=== PATIENT | male | born 1975 | race African-American/Black ===

== ENCOUNTER 2023-01-24 16:04 | Outpatient (AMB) | payer OTHER, SELFPAY ==
--- NOTE | 2023-01-24 16:04 | MHC.PC.OV ---
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 Accompanied by: Self / Same As Patient Allergies No Known Allergies Allergy (Verified 01/24/23 16:31) Medication List - Last Reconciled 01/24/23 by Luan Elliott MD No Known Home Meds Dental Screening Dental Screen Date: 01/24/23 Did you have a dental visit in the last 12 months?: Yes Did you have a dental problem in the last 6 months where you did not have access to dental care?: No Was dental information given to patient?: Patient has dentist HPI New patient-Requesting physical HPI Details Patient comes in today for his annual physical examination and to establish care - is a new patient to the practice States that he currently feels okay States that he has a Hx of ELIZABETH - was diagnosed (sleep study) back in 2015 when he was still working in [place] Recalls that he was using a CPAP device for a while when he sleeps at night but he stopped using it about 3 years ago after learning that that the model he was using may potentially cause cancer States that he has not been using a CPAP device since as he moved around a lot over the past few years (due to his work) but is now planning to settle down here in [facility] - 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 [place] He denies any headaches or dizziness Denies any chest pains, no SOB No nausea/vomiting, no abdominal pain No change in bowel habits noted He denies any acute urinary symptoms [facility] Medical History Obstructive sleep apnea Surgical History Hx of left knee surgery (~2005) Family History Other Congestive heart failure Diabetes Hypertension Social History (Updated 01/24/23 @ 16:37 by Luan Elliott MD) Housing: House Patient Tobacco Use Status: Current someday Tobacco user e-Cigarette/Vaping Use: Never Used Substance Use Type: Marijuana service: No Current occupational status: employed Cognitive needs: No Hearing needs: No Vision needs: No Questionnaire PHQ-9 Over the last 2 weeks, how often have you been bothered by any of the following problems? 1. Little interest or pleasure in doing things: nearly every day 2. Feeling down, depressed, or hopeless: not at all 3. Trouble falling or staying asleep, or sleeping too much: not at all 4. Feeling tired or having little energy: several days 5. Poor appetite or overeating: not at all 6. Feeling bad about yourself - or that you are a failure or have let yourself or your family down: not at all 7. Trouble concentrating on things, such as reading the newspaper or watching television: not at all 8. Moving or speaking so slowly that other people could have noticed. Or the opposite - being so fidgety or restless that you have been moving around a lot more than usual: not at all 9. Thoughts that you would be better off or of hurting yourself in some way: not at all Total score: 4 Depression Screening Interpretation: Positive Depression Screening Follow-up: Existing condition, Follow-up Visit Requested and Declines treatment 19084 - PHQ-9 Billing: Yes Source: Developed by Drs. Alcides Tracey, Nusrat Galdamez, José Miguel Lopez and colleagues, with an educational willie from [employer]. Thrive Questionnaire Date Thrive assessed: 01/24/23 I am a: Patient What is your living situation today?: I have a steady place to live Within the past 12 months, did the food you bought not last and you didn't have the money to get more?: Never true Within the past 12 months, did you worry whether your food would run out before you got money to buy more?: Never true Do you have trouble paying for medicines?: No Do you have trouble getting transportation to medical appointments?: No Do you have trouble paying your heating and electricity bill?: No Do you have trouble taking care of your child, family member or friend?: No Do you have trouble with day-to-day activities such as bathing, preparing meals, shopping, managing finances, etc.?: No Are you currently unemployed and looking for a job?: No Are you interested in more education?: No Please select the resources that you would like help with: None Currently or been in a relationship where the following occur: no concerns reported AUDIT C Alcohol Use Questionnaire (AUDIT-C) 1. How often do you have a drink containing alcohol?: Monthly or less 3. How often do you have six or more drinks on one occasion?: Never Total Score: 1 Score Reviewed/Action Taken: Yes YESENIA-7 AMB Questionnaire YESENIA-7 Date YESENIA - 7 assessed: 01/24/23 Feeling nervous, anxious, or on edge: 1 = Several days Not being able to stop or control worryin = Not at all Worrying too much about different things: 0 = Not at all Trouble relaxin = Not at all Being so restless that it is hard to sit still: 0 = Not at all Becoming easily annoyed or irritable: 0 = Not at all Feeling afraid as if something awful might happen: 0 = Not at all Total YESENIA-7 score (0-4 normal; 5-9 mild; 10-14 moderate; 15-21 severe): 1 Source: Developed by Drs. Alcides Tracey, Nusrat Galdamez, José Miguel Lopez and colleagues, with an educational willie from [employer]. Review of Systems Const Denies chills, Reports daytime sleepiness (sometimes), Denies fatigue, Denies fever(s), Denies headache(s), Denies malaise and Denies weakness Eyes Denies blurry vision, Denies change in vision, Denies irritation and Denies itchy eyes ENT Denies dysphagia, Denies dizziness, Denies otalgia, Denies headache(s), Denies nasal congestion, Denies neck pain, Denies odynophagia and Denies sore throat Card Denies chest pain, Denies rapid heart rate, Denies irregular heart rhythm, Denies palpitations and Denies dyspnea Resp Denies chest congestion, Denies cough, Denies dyspnea and Denies wheezing GI Denies abdominal pain, Denies bloating, Denies constipation, Denies dysphagia, Denies heartburn, Denies diarrhea, Denies nausea, Denies odynophagia and Denies vomiting Denies hematuria, Denies difficulty urinating, Denies dysuria, Denies urinary frequency and Denies urinary urgency Musc Denies back pain, Denies arthralgias, Denies joint swelling, Denies muscle weakness and Denies neck pain Skin/Breast Denies change in pigmentation, Denies lesions, Denies rash and Denies unusual bruising Neuro Denies dizziness, Denies headache(s), Denies paresthesias and Denies weakness Endo Denies fatigue and Denies palpitations Aller/Immun Denies itchy eyes and Denies wheezing Physical exam (Primary Care) Vital Signs: Last Vital Signs Pulse 76 01/24/23 16:05 BP 118/78 01/24/23 16:05 Pulse Ox 97 01/24/23 16:05 Oxygen Delivery Method Room Air 01/24/23 16:05 BMI result Body Mass Index 31.3 Tobacco/Smoking Status: Tobacco use Status Patient Tobacco Use Status Current someday Tobacco 01/24/23 16:37 e-Cigarette/Vaping Use Never Used 01/24/23 16:37 PHQ-9: PHQ-9 Score PHQ-9: Total score 4 01/24/23 16:40 Depression Screening Interpretation: Positive Depression Screening Follow-up: Existing condition, Follow-up Visit Requested and Declines treatment Thrive Assessment: Date of Thrive Assessment Date Thrive assessed 01/24/23 01/24/23 16:12 Currently or been in a relationship where the following occur: no concerns reported Const General: no acute distress, alert and awake Orientation/consciousness: patient oriented x3 HENMT Head: Yes normocephalic and Yes atraumatic Ears: external ears normal, TM's normal bilaterally and EAC's normal General nose exam: No nasal discharge present Face and sinus: Yes normal facial exam and Yes sinuses nontender Teeth and gingiva: dentition normal Throat: Yes posterior oropharynx normal and Yes tonsils normal (no TP congestion) Eyes Eyelids: Yes eyelids normal Conjunctivae: conjunctivae normal Pupils: Equal, round and reactive pupils present EOM: EOMs intact bilaterally Neck Neck: Yes no lymphadenopathy and Yes supple Thyroid: Thyroid normal Resp Auscultation: clear to auscultation bilaterally, no rales and no wheezes Cardio Rate: regular rate Rhythm: regular rhythm Heart sounds: no murmurs GI Palpation (GI): Soft to palpation, nontender and No hepatosplenomegaly present Auscultation: normal bowel sounds General: Yes no CVA tenderness Back/Spine/Pelvis Back: no CVA tenderness Thoracic/Lumbar Spine: thoracic and lumbar spine normal to inspection Skin Lesions: no lesions Rashes: no rashes Neuro General: patient oriented x3, moves all extremities, no focal motor deficits and CN's II-XI intact bilaterally Cranial nerves: Yes Equal, round and reactive pupils present Cognition (Neuro): normal cognition Gait exam (Neuro): Normal gait present Extrem General: Yes no clubbing, cyanosis or edema Assessment and Plan Assessment & Plan (1) Annual physical exam: Code(s): Z00.00 - Encounter for general adult medical examination without abnormal findings Plan: Check labs (2) Obstructive sleep apnea: Code(s): G47.33 - Obstructive sleep apnea (adult) (pediatric) Plan: (+) Hx of ELIZABETH; diagnosed in 2016 when he was residing in [place] Has not used a CPAP device in the past few years; stopped using his device when he was informed that the model he was using may potential be carcinogenic Will refer him to Sleep Medicine here at [facility] for reevaluation and management (3) Colon cancer screening: Code(s): Z12.11 - Encounter for screening for malignant neoplasm of colon Plan: Will refer him to GI for screening colonoscopy Plan Follow up in 4 months Orders: Orders Comprehensive [place]. Panel Fast Today G47.33 - Obstructive sleep apnea (adult) (pediatric), Z00.00 - Encounter for general adult medical examination without abnormal findings Lipid Panel Today E78.00 - Pure hypercholesterolemia, unspecified, Z00.00 - Encounter for general adult medical examination without abnormal findings Prostate Specific Antigen Scr Today Z00.00 - Encounter for general adult medical examination without abnormal findings TSH reflex Free T4 Today E78.00 - Pure hypercholesterolemia, unspecified, Z00.00 - Encounter for general adult medical examination without abnormal findings Vitamin D 25-OH Total Today E55.9 - Vitamin D deficiency, unspecified, Z00.00 - Encounter for general adult medical examination without abnormal findings Complete Blood Count Auto Diff Today G47.33 - Obstructive sleep apnea (adult) (pediatric), Z00.00 - Encounter for general adult medical examination without abnormal findings UA CC w/rflx Micro + Cult Today R30.0 - Dysuria, Z00.00 - Encounter for general adult medical examination without abnormal findings Referrals Gastroenterology Referral Z12.11 - Encounter for screening for malignant neoplasm of colon Sleep Medicine Referral G47.33 - Obstructive sleep apnea (adult) (pediatric) Coding Level of Care Code New Pt Prev Care 40-64y(68583) Diagnoses Annual physical exam Z00.00 Obstructive sleep apnea G47.33 Colon cancer screening Z12.11
[2023-01-24 16:05] VITALS: BP 118/78; PULSE 76; O2SAT 97; BMI 31.3
== END 2023-01-24 16:55 | disposition home or self-care (01) ==
PROVIDERS: PCP Internal Medicine; Visit Provider Internal Medicine
DX: Z00.00 Encounter for general adult medical examination without abnormal findings (principal); G47.33 Obstructive sleep apnea (adult) (pediatric); Z12.11 Encounter for screening for malignant neoplasm of colon
CPT/HCPCS: 99386

== ENCOUNTER 2023-04-01 13:10 | Outpatient (AMB) | payer OTHER, SELFPAY ==
[2023-04-01 13:17] VITALS: BP 130/78; BMI 30.9
--- NOTE | 2023-04-01 13:17 | A.OFFVIS_ITS ---
Intake Vital Signs 04/01/23 13:17 Height 5 ft 4 in Weight 180 lb BMI 30.9 BP 130/78 Blood Pressure Location Rt brachial Position Sitting Intake Visit Reasons: [facility] WORKER: ELIZABETH-LVM Intake Note: Patient presents for ELIZABETH. patient states sleep study was done 2013 they gave me a machine and then I moved, i was given another one and that was was giving me problems and i heard it can give you cancer. Allergies No Known Allergies Allergy (Verified 04/01/23 13:25) HPI HPI Comments History of Present Illness Details 47 y/o male patient presents for new in- person visit to manage sleep apnea. Pt reports he was diagnosed with ELIZABETH in 2014 and treated with CPAP. However, he stopped using CPAP 4 years ago. He was told that his CPAP was recalled due to increased chance of cancer. He gained about 15 lb since the the last sleep study. Pt reports snoring, gasping and witnessed apnea spells. He is having non refreshing sleep and daytime sleepiness, takes a nap couple of hours daily. He wants to try other options than CPAP. Sleep questionnaire: Have you ever been diagnosed with a sleep disorder? Yes. ELIZABETH. Have you ever had a sleep study in the past? Yes. in lab sleep study in 2013 or 2014. Have you ever been treated for a sleep disorder? Yes, CPAP, but was told that hi s CPAP caused cancer and he stopped using it 4 years ago. Do you take medications for a sleep disorder? No. Do you snore? Yes. Do you wake up gasping at night? Yes, sometimes. Do you have episodes of apneas? Yes. If yes, are they witnessed? Yes. Do you have episodes of nocturnal chest pain or dyspnea? No. Do you have difficulty initiating sleep? No. Do you have difficulty maintaining sleep? Yes. Do you wake up tired? Yes. Do you have headaches upon awakening? No. Do you wake up with dry mouth or throat? No. Do you have GERD? Yes, sometimes. Do you have nocturia? No. Do you have nocturnal leg cramps? No. Do you have symptoms of restless legs? Yes, sometimes. Do you act out your dreams? No. Sleep hygiene questionnaire: What is your usual sleep routine? Usual bedtime is at 12 am ; Usual wake up time is at 8 am. Do you take naps? Yes, frequently, long period time. Is your sleep environment cool, dark, and quiet? Yes. 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 Do you take caffeine or other stimulants? No. Do you use electronics in bed? No. What is your work schedule? 9 am to 6 pm. Hypersomnolence questionnaire: Do you have daytime tiredness or fatigue? Yes. Do you easily fall asleep when inactive? Yes. Have you ever had episodes of sudden weakness? No. Have you ever had episodes of sudden weakness associated with strong emotions? No. PFSH Medical History Obstructive sleep apnea Surgical History Hx of left knee surgery (~2005) Family History (Updated 04/01/23 @ 13:26 by DIANE Alcantara) Father Congestive heart failure Mother Heart disease Other Diabetes Hypertension Social History (Updated 04/01/23 @ 13:27 by DIANE Alcantara) Housing: House Alcohol intake: current Patient Tobacco Use Status: Current someday Tobacco user e-Cigarette/Vaping Use: Never Used Substance Use Type: Marijuana service: No Current occupational status: employed Cognitive needs: No Hearing needs: No Vision needs: No Review of Systems Const All systems reviewed & are unremarkable except as noted in HPI and below ENT Reports Normal hearing present Neuro Reports Normal hearing present Physical Exam Vital Signs: Last Vital Signs BP 130/78 04/01/23 13:17 BMI result Body Mass Index 30.9 Const General: cooperative Nutritional Appearance: obese Orientation/consciousness: patient oriented x3 Neck Neck: Yes full ROM and Yes supple Resp Effort & Inspection: normal respiratory effort and able to speak in complete sentences Neuro General: patient oriented x3, gait normal and moves all extremities Cranial nerves: Yes Bilaterally intact EOM present, Yes Normal facial strength present, Yes Midline tongue present, Yes Symmetric palate elevation present, Yes Normal hearing present, Yes Ability to bilaterally rotate head present and Yes Ability to bilaterally elevate shoulders present Cognition (Neuro): normal cognition Gait exam (Neuro): Normal gait present Motor exam (neuro): 5/5 motor strength present throughout, Pronator motor function not present and no tremor noted Psych Appearance: grossly normal Mental Status: mental status grossly normal Speech and movement: Normal speech and movement present Affect: normal affect Attitude: cooperative Assessment & Plan Assessment & Plan (1) Excessive daytime sleepiness: Code(s): G47.19 - Other hypersomnia (2) Obstructive sleep apnea: Code(s): G47.33 - Obstructive sleep apnea (adult) (pediatric) Plan Pt is advised to undergo home sleep study to assess for sleep apnea. Will f/u with pt after study to discuss results and appropriate treatment options. Sleep hygiene education provided. Advised patient to limit marijuana use for better quality sleep. Pt to call with any worsening concerns or questions. Orders: Orders RT home sleep study Today G47.19 - Other hypersomnia, G47.33 - Obstructive sleep apnea (adult) (pediatric) Coding Level of Care Code New Pt Level 3 (23052) Diagnoses Excessive daytime sleepiness G47.19 Obstructive sleep apnea G47.33
== END 2023-04-01 13:53 | disposition home or self-care (01) ==
PROVIDERS: PCP Internal Medicine; Visit Provider Nurse Practitioner Family
DX: G47.19 Other hypersomnia (principal); G47.33 Obstructive sleep apnea (adult) (pediatric)
CPT/HCPCS: 99203

== ENCOUNTER → 2023-04-01 13:10 | Outpatient (BNVA) | payer OTHER, SELFPAY | PROVIDERS: PCP Internal Medicine; Visit Provider Nurse Practitioner Family ==

== ENCOUNTER 2023-04-21 11:13 | Outpatient (REF) | payer OTHER, SELFPAY ==
[2023-04-21 12:46] LABS: Basophils Percent Auto 0.4 % (0-2); Eosinophils Absolute Auto 0.1 X10*3/uL (0.0-0.4); Eosinophils Percent Auto 1.9 % (0-4); Hematocrit 38.5 % (42.0-52.0); Hemoglobin 13.2 g/dl (14.0-18.0); Lymphocytes Absolute Auto 1.4 X10*3/uL (1.2-4.9); Lymphocytes Percent Auto 51.7 % (20-40); MANUAL DIFF FLAG SCAN; Mean Corpuscular HGB Conc 34.3 g/dl (31.0-36.0); Mean Corpuscular Hemoglobin 29.3 pg (27.0-33.0); Mean Corpuscular Volume 85.6 fL (80.0-98.0); Mean Platelet Volume 10.7 fL (9.4-12.4); Monocytes Absolute Auto 0.2 X10*3/uL (0.1-1.2); Monocytes Percent Auto 9.1 % (2-11); Neutrophils Percent Auto 36.9 % (45-73); Platelet Count 256 X10*3/uL (160-400); SCAN SMEAR FLAG 1; White Blood Count 2.7 X10*3/uL (4.8-10.8)
[2023-04-21 13:23] LABS: Alanine Aminotransferase 40 U/L (0-40); Albumin Level 4.2 g/dL (3.5-5.0); Alkaline Phosphatase 52 U/L (39-117); Anion Gap 11 (12-20); Aspartate Amino Transferase 57 U/L (5-37); Bilirubin Total 0.3 mg/dL (0.0-1.0); Blood Urea Nitrogen 9 mg/dL (9-16); Calcium 9.1 mg/dL (8.4-10.2); Carbon Dioxide 28 mmol/L (22-29); Chloride 105 mmol/L (96-108); Estimated Glomerular Filt Rate 54; Glucose Random 68 mg/dL (60-115); Potassium 4.3 mmol/L (3.3-5.1); Sodium 140 mmol/L (135-145); Total Protein 7.2 g/dL (6.5-8.0)
[2023-04-21 13:38] LABS: Thyroid Stimulating Hormone 1.62 uIU/mL (0.32-4.0)
[2023-04-21 14:38] LABS: SLIDE REVIEW VERIFIED
== END 2023-04-21 11:14 | disposition home or self-care (01) ==
LOC: HO.LAB 11:13
PROVIDERS: PCP Internal Medicine; Visit Provider Physician Assistant
DX: Z01.818 Encounter for other preprocedural examination (principal)
CPT/HCPCS: 36415; 80053; 84443; 85025

== ENCOUNTER 2023-04-21 11:13 | Outpatient (AMB) | payer OTHER, SELFPAY ==
--- NOTE | 2023-04-21 11:25 | MHC.OFFVIS ---
Intake Vital Signs 04/21/23 11:31 Height 5 ft 4 in Weight 180 lb BMI 30.9 BP 116/57 L Blood Pressure Location Lt brachial Position Sitting Pulse 73 Intake Visit Reasons: Colonoscopy Screening Intake Note: Patient new consult for 1st pre colonoscopy screening Patient denies any GI issues. 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 Accompanied by: Spouse Allergies No Known Allergies Allergy (Verified 04/21/23 11:25) Medication List - Last Reconciled 04/21/23 by Debra Solano PA-C No Known Home Meds HPI HPI Comments History of Present Illness Details 47-year-old male referred for index screening colonoscopy He has no GI or general complaints No family history of GI cancer He has a good appetite Normal bowel pattern He does not take any a prescribed medications however does take some herbs and supplements He is going to test for sleep apnea No nausea, vomiting, hematemesis, hematochezia fever or chills PFSH Medical History Obstructive sleep apnea Surgical History Hx of left knee surgery (~2005) Family History Father Congestive heart failure Mother Heart disease Other Diabetes Hypertension Housing: House Alcohol intake: current Patient Tobacco Use Status: Current someday Tobacco user e-Cigarette/Vaping Use: Never Used Substance Use Type: Marijuana service: No Current occupational status: employed Cognitive needs: No Hearing needs: No Vision needs: No Review of Systems Const All systems reviewed & are unremarkable except as noted in HPI and below Card Denies chest pain and Denies dyspnea Resp Denies dyspnea GI Denies abdominal pain, Denies change in bowel habits, Denies heartburn, Denies nausea and Denies vomiting Physical Exam Vital Signs: Last Vital Signs Pulse 73 04/21/23 11:31 BP 116/57 L 04/21/23 11:31 BMI result Body Mass Index 30.9 Const General: cooperative, healthy appearing, comfortable and no acute distress Results Reviewed Results Reviewed: No labs Assessment & Plan Assessment & Plan (1) Colon cancer screening: Comment: Very pleasant 47-year-old Gent no GI complaints Takes no medications-does use OTC herbs Awaiting sleep study Code(s): Z12.11 - Encounter for screening for malignant neoplasm of colon Plan: inform us of any health status change Plan Index screening colonoscopy MiraLax Gatorade prep Baseline lab CBC CMP TSH Orders: Orders Comprehensive Met. Panel Today Z12.11 - Encounter for screening for malignant neoplasm of colon Colonoscopy - GI Use Only Today Z12.11 - Encounter for screening for malignant neoplasm of colon Complete Blood Count Auto Diff Today Z12.11 - Encounter for screening for malignant neoplasm of colon Thyroid Stimulating Hormone Today Z12.11 - Encounter for screening for malignant neoplasm of colon Medications: New polyethylene glycol 3350 (Miralax) Take as directed by mouth the day before your procedure. 238 grams PO ONCE 1 day PRN 238 grams 0RF laxative effect bisacodyl (Dulcolax (bisacodyl)) Day before procedure, prep day Take 4 tablets by mouth upon awakening followed by large glass of water 20 mg (4 x 5 mg) PO ONCE 1 day 4 tabs 0RF colonoscopy prep Z12.11 - Encounter for screening for malignant neoplasm of colon Patient Instructions: Index screening colonoscopy MiraLax Gatorade prep Baseline lab CBC CMP TSH Coding Level of Care Code New Pt Level 3 (52730) Diagnoses Colon cancer screening Z12.11 Time Spent (min) 30
[2023-04-21 11:31] VITALS: BP 116/57; PULSE 73; BMI 30.9
== END 2023-04-21 13:33 | disposition home or self-care (01) ==
PROVIDERS: PCP Internal Medicine; Visit Provider Physician Assistant
DX: Z01.818 Encounter for other preprocedural examination (principal); Z12.11 Encounter for screening for malignant neoplasm of colon
CPT/HCPCS: S0285

== ENCOUNTER → 2023-05-14 08:02 | Outpatient (REF) | payer OTHER, SELFPAY | LOC: HO.SL 08:02 | PROVIDERS: PCP Internal Medicine; Visit Provider Nurse Practitioner Family | DX: G47.33 Obstructive sleep apnea (adult) (pediatric) (principal); G47.19 Other hypersomnia | CPT/HCPCS: 95806 ==

== ENCOUNTER → 2023-05-14 08:12 | Outpatient (BNV) | payer OTHER, SELFPAY | PROVIDERS: PCP Internal Medicine; Visit Provider Psychiatry & Neurology Neurology | DX: R06.83 Snoring (principal) | CPT/HCPCS: 95806 ==

== ENCOUNTER 2023-06-05 09:44 | Outpatient (AMB) | payer OTHER, SELFPAY ==
[2023-06-05 09:45] VITALS: BP 104/80; PULSE 68; O2SAT 99; BMI 31.7
--- NOTE | 2023-06-05 09:45 | A.OFFPC_ITS ---
Vital Signs 06/05/23 09:45 Height 5 ft 4 in Weight 184 lb 8 oz BMI 31.7 BP 104/80 Blood Pressure Location Lt brachial Position Sitting Pulse 68 Pulse Source Pulse Oximeter Pulse Oximetry (%) 99 Oxygen Delivery Method Room Air Intake Visit Reasons: Obstructive sleep apnea Furnace Maintenance Required: No Accompanied by: Self / Same As Patient Allergies No Known Allergies Allergy (Verified 06/05/23 10:39) Medication List - Last Reconciled 06/05/23 by Luan Elliott MD bisacodyl (Dulcolax (bisacodyl)) 20 mg (4 x 5 mg) PO ONCE 1 day polyethylene glycol 3350 (Miralax) 238 grams PO ONCE PRN 1 day Tobacco use date assessed: 06/05/23 Dental Screening Dental Screen Date: 06/05/23 Did you have a dental visit in the last 12 months?: Yes Did you have a dental problem in the last 6 months where you did not have access to dental care?: No Was dental information given to patient?: Patient has dentist HPI Obstructive sleep apnea HPI Details Patient comes in today for his follow up visit States that he feels okay Just had a home sleep study done a few days ago and he is scheduled to see Sleep Medicine tomorrow for his follow up visit He is also scheduled for his screening colonoscopy in August 2023 He denies any headaches or dizziness Denies any chest pains, no SOB No nausea/vomiting, no abdominal pain No change in bowel habits noted [facility] Medical History (Updated 06/05/23 @ 11:01 by Luan Elliott MD) Obesity (BMI 30-39.9) Obstructive sleep apnea Surgical History Hx of left knee surgery (~2005) Family History Father Congestive heart failure Mother Heart disease Other Diabetes Hypertension Social History Housing: House Alcohol intake: current Patient Tobacco Use Status: Current someday Tobacco user e-Cigarette/Vaping Use: Never Used Substance Use Type: Marijuana service: No Current occupational status: employed Cognitive needs: No Hearing needs: No Vision needs: No Questionnaire PHQ-9 Over the last 2 weeks, how often have you been bothered by any of the following problems? 1. Little interest or pleasure in doing things: nearly every day 2. Feeling down, depressed, or hopeless: not at all 3. Trouble falling or staying asleep, or sleeping too much: not at all 4. Feeling tired or having little energy: several days 5. Poor appetite or overeating: not at all 6. Feeling bad about yourself - or that you are a failure or have let yourself or your family down: not at all 7. Trouble concentrating on things, such as reading the newspaper or watching television: not at all 8. Moving or speaking so slowly that other people could have noticed. Or the opposite - being so fidgety or restless that you have been moving around a lot more than usual: not at all 9. Thoughts that you would be better off or of hurting yourself in some way: not at all Total score: 4 Depression Screening Interpretation: Positive Depression Screening Follow-up: Existing condition and Declines treatment Depression Screening Done: Yes 80618 - PHQ-9 Billing: Yes Source: Developed by Drs. Alcides Tracey, Nusrat Galdamez, José Miguel Lopez and colleagues, with an educational willie from [employer]. Thrive Questionnaire Date Thrive assessed: 06/05/23 I am a: Patient What is your living situation today?: I have a steady place to live Within the past 12 months, did the food you bought not last and you didn't have the money to get more?: Never true Within the past 12 months, did you worry whether your food would run out before you got money to buy more?: Never true Do you have trouble paying for medicines?: No Do you have trouble getting transportation to medical appointments?: No Do you have trouble paying your heating and electricity bill?: No Do you have trouble taking care of your child, family member or friend?: No Do you have trouble with day-to-day activities such as bathing, preparing meals, shopping, managing finances, etc.?: No Are you currently unemployed and looking for a job?: No Are you interested in more education?: No Please select the resources that you would like help with: None Currently or been in a relationship where the following occur: no concerns reported AUDIT C Alcohol Use Questionnaire (AUDIT-C) 1. How often do you have a drink containing alcohol?: Monthly or less 3. How often do you have six or more drinks on one occasion?: Never Total Score: 1 Score Reviewed/Action Taken: Yes YESENIA-7 AMB Questionnaire YESENIA-7 Date YESENIA - 7 assessed: 06/05/23 Feeling nervous, anxious, or on edge: 1 = Several days Not being able to stop or control worryin = Not at all Worrying too much about different things: 0 = Not at all Trouble relaxin = Not at all Being so restless that it is hard to sit still: 0 = Not at all Becoming easily annoyed or irritable: 0 = Not at all Feeling afraid as if something awful might happen: 0 = Not at all Total YESENIA-7 score (0-4 normal; 5-9 mild; 10-14 moderate; 15-21 severe): 1 Source: Developed by Drs. Alcides Tracey, Nusrat Galdamez, José Miguel Lopez and colleagues, with an educational willie from [employer]. Review of Systems Const Denies chills, Reports daytime sleepiness (sometimes), Denies fatigue, Denies fever(s) and Denies headache(s) ENT Denies dysphagia, Denies dizziness, Denies otalgia, Denies headache(s), Denies neck pain, Denies odynophagia and Denies sore throat Card Denies chest pain, Denies rapid heart rate, Denies irregular heart rhythm, Denies palpitations and Denies dyspnea Resp Denies chest congestion, Denies cough, Denies dyspnea and Denies wheezing GI Denies abdominal pain, Denies constipation, Denies dysphagia, Denies heartburn, Denies diarrhea, Denies nausea, Denies odynophagia and Denies vomiting Denies difficulty urinating, Denies dysuria and Denies urinary frequency Musc Denies back pain, Denies arthralgias and Denies neck pain Skin/Breast Denies rash Neuro Denies dizziness and Denies headache(s) Endo Denies fatigue and Denies palpitations Aller/Immun Denies wheezing Physical exam (Primary Care) Vital Signs: Last Vital Signs Pulse 68 06/05/23 09:45 BP 104/80 06/05/23 09:45 Pulse Ox 99 06/05/23 09:45 Oxygen Delivery Method Room Air 06/05/23 09:45 BMI result Body Mass Index 31.7 Tobacco/Smoking Status: Tobacco use Status Tobacco use date assessed 06/05/23 06/05/23 09:51 Patient Tobacco Use Status Current someday Tobacco 06/05/23 09:51 e-Cigarette/Vaping Use Never Used 06/05/23 09:51 PHQ-9: PHQ-9 Score PHQ-9: Total score 4 06/05/23 09:51 Depression Screening Interpretation: Positive Depression Screening Follow-up: Existing condition and Declines treatment Thrive Assessment: Date of Thrive Assessment Date Thrive assessed 06/05/23 06/05/23 09:51 Currently or been in a relationship where the following occur: no concerns reported Const General: no acute distress and alert HENMT Ears: TM's normal bilaterally and EAC's normal Throat: Yes posterior oropharynx normal and Yes tonsils normal (no TP congestion) Neck Neck: Yes no lymphadenopathy and Yes supple Resp Auscultation: clear to auscultation bilaterally, no rales and no wheezes Cardio Rate: regular rate Rhythm: regular rhythm Heart sounds: no murmurs GI Palpation (GI): Soft to palpation and nontender Auscultation: normal bowel sounds Skin Rashes: no rashes Extrem General: Yes no clubbing, cyanosis or edema Results Reviewed Results Reviewed: Laboratory Tests 04/21/23 12:13 WBC 2.7 L Hgb 13.2 L Hct 38.5 L Plt Count 256 Neut % (Auto) 36.9 L Lymph % (Auto) 51.7 H Sodium 140 Potassium 4.3 Creatinine 1.41 H Estimated GFR 54 Random Glucose 68 Calcium 9.1 AST 57 H ALT 40 TSH 1.62 Assessment and Plan Assessment & Plan (1) Obstructive sleep apnea: Code(s): G47.33 - Obstructive sleep apnea (adult) (pediatric) Plan: (+) Hx of ELIZABETH; diagnosed in 2016 when he was residing in [place] Has not used a CPAP device in the past few years; states that he stopped using his device when he was informed that the model he was using may potential be carcinogenic He was referred to Sleep Medicine here at [facility] for reevaluation and further management and he recently completed a home sleep study, which came out normal He is scheduled to see Sleep Medicine again tomorrow for his follow up visit and I will leave it up to them to determine what his next step should be to try to get him back on a CPAP device if appropriate (2) Anemia: Code(s): D64.9 - Anemia, unspecified Qualifiers: Anemia type: unspecified type Qualified Code(s): D64.9 - Anemia, unspecified Plan: Results of his labs done back in March 2023 reviewed and discussed with patient Have advised him that he is slightly anemic on his labs and that at this time, it is unclear why as his RBCs appear to be normochromic and normocytic Will recheck this and send him for some additional labs in 4 months for follow up (3) Leucopenia: Code(s): D72.819 - Decreased white blood cell count, unspecified Qualifiers: Leukopenia type: neutropenia Neutropenia type: unspecified Qualified Code(s): D70.9 - Neutropenia, unspecified Plan: Will also recheck his labs and send him for some additional tests for further evaluation in 4 months (4) Elevated serum creatinine: Code(s): R79.89 - Other specified abnormal findings of blood chemistry Plan: His serum creatinine was slightly elevated at 1.41 and GFR was slightly lower than normal at 54 but this increased to 65.34 when corrected for - Americans and multiplied by 1.210 Will recheck his serum creatinine and GFR in 4 months for follow up and discussed that if his numbers remain suppressed, will need to send him for further evaluation and possibly a nephrology consult Have advised patient in the meantime to avoid taking too much OTC NSAIDs (5) Elevated AST (SGOT): Code(s): R74.01 - Elevation of levels of liver transaminase levels Plan: Will recheck his LFTs in 4 months for follow up and will consider imaging studies if his LFTs remain elevated (6) Obesity (BMI 30-39.9): Code(s): E66.9 - Obesity, unspecified Plan: Reinforced diet/exercise as tolerated/lose weight Plan Follow up in 4 months Orders: Orders Complete Blood Count Auto Diff 4 Months D64.9 - Anemia, unspecified, R79.89 - Other specified abnormal findings of blood chemistry Lipid Panel 4 Months E78.00 - Pure hypercholesterolemia, unspecified UA CC w/rflx Micro + Cult 4 Months R30.0 - Dysuria, R79.89 - Other specified abnormal findings of blood chemistry Vitamin D 25-OH Total 4 Months E55.9 - Vitamin D deficiency, unspecified, R79.89 - Other specified abnormal findings of blood chemistry Vitamin B12 and Folate 4 Months D72.819 - Decreased white blood cell count, unspecified, E53.8 - Deficiency of other specified B group vitamins Zinc 4 Months D72.819 - Decreased white blood cell count, unspecified IRON PROFILE 4 Months D50.9 - Iron deficiency anemia, unspecified Comprehensive Dwight. Panel Fast 4 Months E78.00 - Pure hypercholesterolemia, unspecified Copper, serum 4 Months D72.819 - Decreased white blood cell count, unspecified Hemoglobin Electrophoresis 4 Months D64.9 - Anemia, unspecified, D72.819 - Decreased white blood cell count, unspecified Coding Level of Care Code Est Pt Level 4 (46027) Diagnoses Obstructive sleep apnea G47.33 Anemia, unspecified type D64.9 Anemia type: unspecified type Neutropenia, unspecified type D70.9 Leukopenia type: neutropenia Neutropenia type: unspecified Elevated serum creatinine R79.89 Elevated AST (SGOT) R74.01 Obesity (BMI 30-39.9) E66.9
== END 2023-06-05 10:39 | disposition home or self-care (01) ==
PROVIDERS: PCP Internal Medicine; Visit Provider Internal Medicine
DX: D70.9 Neutropenia, unspecified (principal); E66.9 Obesity, unspecified; Z68.31 Body mass index [BMI] 31.0-31.9, adult; G47.33 Obstructive sleep apnea (adult) (pediatric); D64.9 Anemia, unspecified; R79.89 Other specified abnormal findings of blood chemistry; R74.01 Elevation of levels of liver transaminase levels
CPT/HCPCS: 99214

== ENCOUNTER 2023-06-06 10:48 | Outpatient (AMB) | payer OTHER, SELFPAY ==
--- NOTE | 2023-06-06 11:20 | MHC.OFFVIS ---
Intake Vital Signs 06/06/23 11:24 Height 5 ft 4 in Weight 185 lb 4 oz BMI 31.8 BP 110/64 Blood Pressure Location Lt brachial Position Sitting Respiration 16 Pulse 61 Pulse Source Pulse Oximeter Pulse Oximetry (%) 96 Oxygen Delivery Method Room Air Intake Visit Reasons: 2 mo f/ u - ELIZABETH - LVM Intake Note: Pt presents for 2 month follow up for sleep apnea. Philosophy And Religion Instructor Required: No Allergies No Known Allergies Allergy (Verified 06/06/23 11:21) HPI HPI Comments History of Present Illness Details 47 y/o male patient presents for follow up of sleep study. The home sleep study was inconclusive. The AHI was less than 1 and oxygen brigitte was 86%. Pt reports the equipment was not working correct, it was turned off and he needed to adjust it. He also had hx of sleep apnea and used CPAP. Pt reports he was diagnosed with ELIZABETH in 2014 and treated with CPAP. However, he stopped using CPAP 4 years ago. He was told that his CPAP was recalled due to increased chance of cancer. He gained about 15 lb since the the last sleep study. Pt reports snoring, gasping and witnessed apnea spells. He is having non refreshing sleep and daytime sleepiness, takes a nap couple of hours daily. COUNT INCLUDES THE [facility] Medical History (Updated 06/05/23 @ 11:01 by Luan Elliott MD) Obesity (BMI 30-39.9) Obstructive sleep apnea Surgical History Hx of left knee surgery (~2005) Family History Father Congestive heart failure Mother Heart disease Other Diabetes Hypertension Social History Housing: House Alcohol intake: current Patient Tobacco Use Status: Current someday Tobacco user e-Cigarette/Vaping Use: Never Used Substance Use Type: Marijuana service: No Current occupational status: employed Cognitive needs: No Hearing needs: No Vision needs: No Review of Systems Const All systems reviewed & are unremarkable except as noted in HPI and below ENT Reports Normal hearing present Neuro Reports Normal hearing present Physical Exam Vital Signs: Last Vital Signs Pulse 61 06/06/23 11:24 Resp 16 06/06/23 11:24 BP 110/64 06/06/23 11:24 Pulse Ox 96 06/06/23 11:24 Oxygen Delivery Method Room Air 06/06/23 11:24 BMI result Body Mass Index 31.8 Const General: cooperative Nutritional Appearance: obese Orientation/consciousness: patient oriented x3 Neck Neck: Yes full ROM and Yes supple Resp Effort & Inspection: normal respiratory effort and able to speak in complete sentences Neuro General: patient oriented x3, gait normal and moves all extremities Cranial nerves: Yes Bilaterally intact EOM present, Yes Normal facial strength present, Yes Midline tongue present, Yes Symmetric palate elevation present, Yes Normal hearing present, Yes Ability to bilaterally rotate head present and Yes Ability to bilaterally elevate shoulders present Cognition (Neuro): normal cognition Gait exam (Neuro): Normal gait present Motor exam (neuro): 5/5 motor strength present throughout, Pronator motor function not present and no tremor noted Psych Appearance: grossly normal Mental Status: mental status grossly normal Speech and movement: Normal speech and movement present Affect: normal affect Attitude: cooperative Assessment & Plan Assessment & Plan (1) Excessive daytime sleepiness: Code(s): G47.19 - Other hypersomnia (2) Obstructive sleep apnea: Code(s): G47.33 - Obstructive sleep apnea (adult) (pediatric) Plan Pt is advised to undergo in lab sleep study to assess for sleep apnea. Will f/u with pt after study to discuss results and appropriate treatment options. Sleep hygiene education provided. Advised patient to limit marijuana use for better quality sleep. Pt to call with any worsening concerns or questions. Orders: Orders RT PSG in-lab sleep study Today G47.19 - Other hypersomnia, G47.33 - Obstructive sleep apnea (adult) (pediatric) Coding Level of Care Code Est Pt Level 3 (08574) Diagnoses Excessive daytime sleepiness G47.19 Obstructive sleep apnea G47.33
[2023-06-06 11:24] VITALS: BP 110/64; PULSE 61; RESP 16; O2SAT 96; BMI 31.8
== END 2023-06-06 11:38 | disposition home or self-care (01) ==
PROVIDERS: PCP Internal Medicine; Visit Provider Nurse Practitioner Family
DX: G47.19 Other hypersomnia (principal); G47.33 Obstructive sleep apnea (adult) (pediatric)
CPT/HCPCS: 99213

== ENCOUNTER → 2023-06-06 10:48 | Outpatient (BNVA) | payer OTHER, SELFPAY | PROVIDERS: PCP Internal Medicine; Visit Provider Nurse Practitioner Family ==

== ENCOUNTER 2023-08-06 07:55 | Outpatient (AMB) | payer OTHER, SELFPAY ==
--- NOTE | 2023-08-06 08:08 | MHC.OFFVIS ---
Intake Vital Signs 08/06/23 08:14 Height 5 ft 4 in Weight 177 lb 2 oz BMI 30.4 BP 134/80 Blood Pressure Location Lt brachial Position Sitting Pulse 68 Pulse Source Pulse Oximeter Pulse Oximetry (%) 98 Oxygen Delivery Method Room Air Intake Visit Reasons: Follow up - LVM w/address Intake Note: Patient presents for f/u. Allergies No Known Allergies Allergy (Verified 08/06/23 08:14) HPI HPI Comments History of Present Illness Details 47 y/o male patient presents for follow up of sleep study. The home sleep study was inconclusive. The AHI was less than 1 and oxygen brigitte was 86%. Pt reports the equipment was not working correct, it was turned off and he needed to adjust it. He also had hx of sleep apnea and used CPAP. Pt reports he was diagnosed with ELIZABETH in 2014 and treated with CPAP. However, he stopped using CPAP 4 years ago. He was told that his CPAP was recalled due to increased chance of cancer. He gained about 15 lb since the the last sleep study. Pt reports snoring, gasping and witnessed apnea spells. He is having non refreshing sleep and daytime sleepiness, takes a nap couple of hours daily. In lab sleep study ordered, central scheduling called him three times, but he did not get the message. He changes his diet to vegetarian, and he feels he sleep better than before. [facility] Medical History (Updated 06/05/23 @ 11:01 by Luan Elliott MD) Obesity (BMI 30-39.9) Obstructive sleep apnea Surgical History Hx of left knee surgery (~2005) Family History Father Congestive heart failure Mother Heart disease Other Diabetes Hypertension Social History Housing: House Alcohol intake: current Patient Tobacco Use Status: Current someday Tobacco user e-Cigarette/Vaping Use: Never Used Substance Use Type: Marijuana service: No Current occupational status: employed Cognitive needs: No Hearing needs: No Vision needs: No Review of Systems Const All systems reviewed & are unremarkable except as noted in HPI and below ENT Reports Normal hearing present Neuro Reports Normal hearing present Physical Exam Vital Signs: Last Vital Signs Pulse 68 08/06/23 08:14 BP 134/80 08/06/23 08:14 Pulse Ox 98 08/06/23 08:14 Oxygen Delivery Method Room Air 08/06/23 08:14 BMI result Body Mass Index 30.4 Const General: cooperative Nutritional Appearance: obese Orientation/consciousness: patient oriented x3 Neck Neck: Yes full ROM and Yes supple Resp Effort & Inspection: normal respiratory effort and able to speak in complete sentences Neuro General: patient oriented x3, gait normal and moves all extremities Cranial nerves: Yes Bilaterally intact EOM present, Yes Normal facial strength present, Yes Midline tongue present, Yes Symmetric palate elevation present, Yes Normal hearing present, Yes Ability to bilaterally rotate head present and Yes Ability to bilaterally elevate shoulders present Cognition (Neuro): normal cognition Gait exam (Neuro): Normal gait present Motor exam (neuro): 5/5 motor strength present throughout, Pronator motor function not present and no tremor noted Psych Appearance: grossly normal Mental Status: mental status grossly normal Speech and movement: Normal speech and movement present Affect: normal affect Attitude: cooperative Assessment & Plan Assessment & Plan (1) Excessive daytime sleepiness: Code(s): G47.19 - Other hypersomnia (2) Obstructive sleep apnea: Code(s): G47.33 - Obstructive sleep apnea (adult) (pediatric) Plan Pt is advised to undergo in lab sleep study to assess for sleep apnea. Central scheduling information given to patient. Will f/u with pt after study to discuss results and appropriate treatment options. Sleep hygiene education provided. Advised patient to limit marijuana use for better quality sleep. Pt to call with any worsening concerns or questions. Coding Level of Care Code Est Pt Level 3 (38821) Diagnoses Excessive daytime sleepiness G47.19 Obstructive sleep apnea G47.33
[2023-08-06 08:14] VITALS: BP 134/80; PULSE 68; O2SAT 98; BMI 30.4
== END 2023-08-06 08:25 | disposition home or self-care (01) ==
PROVIDERS: PCP Internal Medicine; Visit Provider Nurse Practitioner Family
DX: G47.19 Other hypersomnia (principal); G47.33 Obstructive sleep apnea (adult) (pediatric)
CPT/HCPCS: 99213

== ENCOUNTER → 2023-08-06 07:55 | Outpatient (BNVA) | payer OTHER, SELFPAY | PROVIDERS: PCP Internal Medicine; Visit Provider Nurse Practitioner Family ==

== ENCOUNTER 2023-09-09 09:07 | Day surgery (SDC) | payer OTHER, SELFPAY ==
[2023-09-04 14:43] VITALS: BMI 30.4
[2023-09-09 09:27] VITALS: BMI 30.9
--- NOTE | 2023-09-09 10:43 | P.CONAN_ITS ---
[facility] Active Problems Active Problems: All Active Problems Obesity (BMI 30-39.9) (Acute) Elevated AST (SGOT) (Acute) Leucopenia (Acute) Elevated serum creatinine (Acute) Anemia (Acute) Excessive daytime sleepiness (Acute) Colon cancer screening (Acute) Annual physical exam (Acute) Obstructive sleep apnea (Acute) Past Medical History Medical History Obesity (BMI 30-39.9) Obstructive sleep apnea Family History Family History Father Congestive heart failure Mother Heart disease Other Diabetes Hypertension Family history of problems with anesthesia: No Surgical History Surgical History Hx of left knee surgery (~2005) History of Problems with Anesthesia: No Social History Social History Housing: House Alcohol intake: current Alcohol intake frequency: holidays/special occasions only Patient Tobacco Use Status: Current someday Tobacco user Tobacco use type: Cigarette e-Cigarette/Vaping Use: Never Used Use of substances other than those prescribed or required for medical reasons: Yes Substance Use Type: Marijuana Substance Use Frequency: Daily Are you DNR?: No Advance Directives: No Advance Directives Information Provided: Yes service: No Current occupational status: employed Cognitive needs: No Hearing needs: No Vision needs: No Meds Allergies Allergy/AdvReac Type Severity Reaction Status Date / Time No Known Allergies Allergy Verified 09/09/23 09:32 Exam Height,Weight and Vital Signs: Height 5 ft 4 in Weight 81.647 kg Airway Mallampati Class: III TM Dist: >3cm Neck ROM: Full Assessment and Plan Assessment Anesthesia Assessment: Anesthesia Plan Discussed and Chart Reviewed Final Anesthetic Review Family History of Problems with Anesthesia: No History of Problems with Anesthesia: No NPO: Yes ASA Class: III Final Preanesthetic Review: No Changes in Pt Med Stat, Meds/Allgs Chart Reviewed, Consent Obtained/Reviewed and Anes Risks/Benef Reviewed Procedure Risk: Low Anesthetic Plan Anesthetic Plan: TIVA Disposition: Standard PACU
--- NOTE | 2023-09-09 10:48 | P.HPSUR_ITS ---
Pre-Procedural Eval Section A - 24 Hr Update-Section A only Date of Service: 09/09/23 Section B - Complete if H&P > 30 days Chief Complaint: screening Relevant Family History (Specify if Yes): No Relevant Social History: None Present Medications: see Short Stay Collaborative assessment Medical History: Significant History (Obesity (BMI 30-39.9) Obstructive sleep apnea) History of Previous Operations: Relevant previous surgery/procedure and date(s) (Hx of left knee surgery (~2005)) Allergies: Allergies Allergy/AdvReac Type Severity Reaction Status Date / Time No Known Allergies Allergy Verified 09/09/23 09:32 Review of Systems Sugical H&P ROS: Negative: Constitution, Cardiovascular, Respiratory, Neurological, Psychiatric, Hem-Onc, Allergic/Immunologic, Gastrointestinal, Genitourinary, Musculoskeletal, Integumentary, Endocrine and Eyes/Ears/Nose/Thro at Exam Surgical H&P Exam: Normal: HEENT, Normal: Heart, Normal: Lungs, Normal: Extremities, Normal: Abdomen, Normal: Skin and Normal: Neurological Plan Diagnosis/Plan: Unchanged I have reviewed the history and physical and performed a pertinent physical examination on my patient. No changes have occurred unless specified. Time Spent With Patient Time: Total time managing care of this patient today ____ minutes.
--- NOTE | 2023-09-09 10:50 | W.PM.OPN ---
Operative Note Operative Note Date of Service: 09/09/23 Narrative: Operative Information Procedure Description: Colonoscopy Indication: MAC Anesthesia: MAC COLONOSCOPY Instrument: Olympus variable stiffness pediatric scope 190L Colonoscopy Monitoring: Vital signs and clinical assessment, continuous EKG monitoring, Pulse oximetry, Carbon Dioxide monitoring and blood pressure monitoring were done throughout the procedure. Colon withdrawal time was 14 minutes. Procedure: The patient was placed in the left lateral decubitis position and pre-procedure medications were administered. After a digital rectal examination of the ano-rectum, the video colonoscope was inserted into the rectum and advanced through the colon to the cecum/TI. The colonoscope was slowly withdrawn in a retrograde panoramic fashion and the colon mucosa was carefully examined including a retroflexed view of the rectum. Findings and interventions are described below. Procedure Difficulty: easy Findings: Terminal Ileum-normal Cecum: 3-4 mm sessile polyp removed with cold forceps Ascending Colon: normal Transverse Colon -normal Descending Colon:normal Sigmoid Colon: normal Rectum: Retroflexion with medium sized internal hemorrhoids seen, grade I Anorectum - normal Intervention: cold forceps Colon preparation: [place] Bowel Preparation Scale Right colon; 2 Transverse colon: 2 Left colon; 2 (0 = Unprepared colon segment with mucosa not seen due to solid stool that cannot be cleared. 1 = Portion of mucosa of the colon segment seen, but other areas of the colon segment not well seen due to staining, residual stool and/or opaque liquid. 2 = Minor amount of residual staining, small fragments of stool and/or opaque liquid, but mucosa of colon segment seen well. 3 = Entire mucosa of colon segment seen well with no residual staining, small fragments of stool or opaque liquid) Impression and Post Procedure Diagnosis: colon polyp internal hemorrhoids Plan: High fiber diet leaflet Avoid straining at stool, epsom salts and sitz bath, anusol supps or cream Repeat Colonoscopy in 5-7 years if adenomatous polyp, 10 yrs if non adenomatous or earlier if clinically indicated Above findings were reviewed with the patient and relevant handouts were provided if indicated.
[2023-09-09 11:08] VITALS: BP 131/73; PULSE 63; RESP 16; TEMP 36.5; O2SAT 98
[2023-09-09 11:30] VITALS: BP 119/61; PULSE 56; RESP 16; TEMP 36.6; O2SAT 100
[2023-09-09 11:45] VITALS: BP 123/66; PULSE 60; RESP 15; O2SAT 100
[2023-09-09 12:00] VITALS: BP 116/72; PULSE 60; RESP 15; TEMP 36.8; O2SAT 100
== END 2023-09-09 12:28 | disposition home or self-care (01) ==
PROVIDERS: PCP Internal Medicine; Visit Provider Internal Medicine Gastroenterology
PROC: 0DJD8ZZ Inspection of Lower Intestinal Tract, Via Natural or Artificial Opening Endoscopic (ICD-10-PCS; CPT 45378; principal; 2023-09-09 12:30)
DX: Z12.11 Encounter for screening for malignant neoplasm of colon (principal); K63.5 Polyp of colon; K64.0 First degree hemorrhoids; G47.33 Obstructive sleep apnea (adult) (pediatric)
CPT/HCPCS: 45380; 88305

== ENCOUNTER → 2023-09-09 09:07 | Outpatient (BNV) | payer OTHER, SELFPAY | PROVIDERS: PCP Internal Medicine; Visit Provider Internal Medicine Gastroenterology | DX: Z12.11 Encounter for screening for malignant neoplasm of colon (principal); D12.0 Benign neoplasm of cecum; K64.0 First degree hemorrhoids | CPT/HCPCS: 45380 ==

== ENCOUNTER → 2023-09-18 20:30 | Outpatient (REF) | payer OTHER, SELFPAY | LOC: HO.SL 20:30 | PROVIDERS: PCP Internal Medicine; Visit Provider Nurse Practitioner Family | DX: G47.33 Obstructive sleep apnea (adult) (pediatric) (principal); G47.19 Other hypersomnia | CPT/HCPCS: 95810 ==

== ENCOUNTER → 2023-09-18 22:31 | Outpatient (BNV) | payer OTHER, SELFPAY | PROVIDERS: PCP Internal Medicine; Visit Provider Psychiatry & Neurology Neurology | DX: G47.19 Other hypersomnia (principal) | CPT/HCPCS: 95810 ==

== ENCOUNTER 2023-10-08 10:00 | Outpatient (AMB) | payer OTHER, SELFPAY ==
--- NOTE | 2023-10-08 10:01 | MHC.PC.OV ---
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 Allergies No Known Allergies Allergy (Verified 10/08/23 12:03) Medication List - Last Reconciled 10/08/23 by Luan Elliott MD No Known Home Meds Tobacco use date assessed: 10/08/23 Dental Screening Dental Screen Date: 06/05/23 HPI 4mth f/u HPI Details Patient comes in today for his follow up visit States that he feels okay He denies any headaches or dizziness Denies any chest pains, no SOB No nausea/vomiting, no abdominal pain No change in bowel habits noted States that he had his sleep study done a few weeks ago but has not yet received any CPAP device that he can start using Also had his screening colonoscopy done a couple of months ago - test came back normal and he is recommended for a repeat colonoscopy in 10 years [facility] Medical History (Updated 10/08/23 @ 12:17 by Luan Elliott MD) Overweight (BMI 25.0-29.9) Obesity (BMI 30-39.9) Obstructive sleep apnea Surgical History Hx of left knee surgery (~2005) Family History Father Congestive heart failure Mother Heart disease Other Diabetes Hypertension Social History Housing: House Alcohol intake: current Alcohol intake frequency: holidays/special occasions only Patient Tobacco Use Status: Current someday Tobacco user Tobacco use type: Cigarette e-Cigarette/Vaping Use: Never Used Substance Use Type: Marijuana service: No Current occupational status: employed Cognitive needs: No Hearing needs: No Vision needs: No Questionnaire Thrive Questionnaire Date Thrive assessed: 06/05/23 AUDIT C Alcohol Use Questionnaire (AUDIT-C) 1. How often do you have a drink containing alcohol?: Monthly or less 2. How many drinks containing alcohol do you have on a typical day when you are drinking?: 1 or 2 3. How often do you have six or more drinks on one occasion?: Never Total Score: 1 Score Reviewed/Action Taken: Yes YESENIA-7 AMB Questionnaire YESENIA-7 Date YESENIA - 7 assessed: 06/05/23 Feeling nervous, anxious, or on edge: 1 = Several days Not being able to stop or control worryin = Not at all Worrying too much about different things: 0 = Not at all Trouble relaxin = Not at all Being so restless that it is hard to sit still: 0 = Not at all Becoming easily annoyed or irritable: 0 = Not at all Feeling afraid as if something awful might happen: 0 = Not at all Total YESENIA-7 score (0-4 normal; 5-9 mild; 10-14 moderate; 15-21 severe): 1 Source: Developed by Drs. Alcides Tracey, Nusrat Galdamez, José Miguel Lopez and colleagues, with an educational willie from [employer]. Review of Systems Const Denies chills, Reports daytime sleepiness (occasionally), Denies fatigue, Denies fever(s) and Denies headache(s) ENT Denies dysphagia, Denies dizziness, Denies otalgia, Denies headache(s), Denies neck pain, Denies odynophagia and Denies sore throat Card Denies chest pain, Denies rapid heart rate, Denies irregular heart rhythm, Denies palpitations and Denies dyspnea Resp Denies chest congestion, Denies cough, Denies dyspnea and Denies wheezing GI Denies abdominal pain, Denies constipation, Denies dysphagia, Denies heartburn, Denies diarrhea, Denies nausea, Denies odynophagia and Denies vomiting Denies difficulty urinating, Denies dysuria and Denies urinary frequency Musc Denies back pain, Denies arthralgias and Denies neck pain Skin/Breast Denies rash Neuro Denies dizziness and Denies headache(s) Endo Denies fatigue and Denies palpitations Aller/Immun Denies wheezing Physical exam (Primary Care) Vital Signs: Last Vital Signs Pulse 62 10/08/23 10:02 BP 122/64 10/08/23 10:02 Pulse Ox 97 10/08/23 10:02 Oxygen Delivery Method Room Air 10/08/23 10:02 BMI result Body Mass Index 29.9 Tobacco/Smoking Status: Tobacco use Status Tobacco use date assessed 10/08/23 10/08/23 10:03 Patient Tobacco Use Status Current someday Tobacco 10/08/23 10:01 Tobacco use type Cigarette 10/08/23 10:01 e-Cigarette/Vaping Use Never Used 10/08/23 10:01 Thrive Assessment: Date of Thrive Assessment Date Thrive assessed 06/05/23 10/08/23 10:01 Const General: no acute distress and alert HENMT Ears: TM's normal bilaterally and EAC's normal Throat: Yes posterior oropharynx normal and Yes tonsils normal (no TP congestion) Neck Neck: Yes no lymphadenopathy and Yes supple Resp Auscultation: clear to auscultation bilaterally, no rales and no wheezes Cardio Rate: regular rate Rhythm: regular rhythm Heart sounds: no murmurs GI Palpation (GI): Soft to palpation and nontender Auscultation: normal bowel sounds Skin Rashes: no rashes Extrem General: Yes no clubbing, cyanosis or edema Results Reviewed Results Reviewed: Laboratory Tests 04/21/23 12:13 WBC 2.7 L Hgb 13.2 L Hct 38.5 L Plt Count 256 Sodium 140 Potassium 4.3 Creatinine 1.41 H Estimated GFR 54 Random Glucose 68 Calcium 9.1 AST 57 H ALT 40 TSH 1.62 Assessment and Plan Assessment & Plan (1) Obstructive sleep apnea: Code(s): G47.33 - Obstructive sleep apnea (adult) (pediatric) Plan: Patient reports (+) Hx of ELIZABETH, diagnosed in 2015 when he was residing in [place] He has not used a CPAP device in the past few years - states that he stopped using his device years ago when he was informed that the model he was using may potential be carcinogenic He was referred to Sleep Medicine here at [facility] [place] [facility] for reevaluation and further management and he completed a home sleep study a few months ago, which came out normal He then had an in-lab sleep study done a few weeks ago in August 2023, which also came back normal - advised that at this time, he has NO evidence of sleep apnea and obviously would not require any Tx or the use of any CPAP device (2) Anemia: Code(s): D64.9 - Anemia, unspecified Qualifiers: Anemia type: unspecified type Qualified Code(s): D64.9 - Anemia, unspecified Plan: Results of his labs done back in March 2023 again reviewed and discussed with patient Have advised him that he is slightly anemic on his labs and that at this time, it is unclear why as his RBCs appear to be normochromic and normocytic Will recheck this and send him for some additional labs now for follow up (3) Leucopenia: Code(s): D72.819 - Decreased white blood cell count, unspecified Qualifiers: Leukopenia type: neutropenia Neutropenia type: unspecified Qualified Code(s): D70.9 - Neutropenia, unspecified Plan: Will also recheck his labs and send him for some additional tests for further evaluation, including a Hgb electrophoresis (4) Elevated serum creatinine: Code(s): R79.89 - Other specified abnormal findings of blood chemistry Plan: His serum creatinine was slightly elevated at 1.41 and GFR was slightly lower than normal at 54 but this increased to 65.34 when corrected for -Americans and multiplied by 1.210 Will recheck his serum creatinine and GFR for follow up and discussed that if his numbers remain suppressed, will need to send him for further evaluation and possibly a nephrology consult Have also previously advised patient to avoid taking any OTC NSAIDs as much as possible (5) Elevated AST (SGOT): Code(s): R74.01 - Elevation of levels of liver transaminase levels Plan: Will recheck his LFTs for follow up and will consider imaging studies if his LFTs remain elevated Per request, will also check his hepatitis profile (6) Overweight (BMI 25.0-29.9): Code(s): E66.3 - Overweight Plan: Reinforced diet/exercise as tolerated/lose weight - he has been able to lose a few pounds since his last visit Plan To return in 6 months for his next annual physical examination Orders: Orders Complete Blood Count Auto Diff Today D64.9 - Anemia, unspecified Comprehensive Brooks. Panel Fast Today E78.00 - Pure hypercholesterolemia, unspecified Lipid Panel Today E78.00 - Pure hypercholesterolemia, unspecified Vitamin D 25-OH Total Today E55.9 - Vitamin D deficiency, unspecified Hepatitis B,C Profile Today R74.01 - Elevation of levels of liver transaminase levels, R79.89 - Other specified abnormal findings of blood chemistry TSH reflex Free T4 Today E78.00 - Pure hypercholesterolemia, unspecified UA CC w/rflx Micro + Cult Today R30.0 - Dysuria Coding Level of Care Code Est Pt Level 4 (51814) Diagnoses Obstructive sleep apnea G47.33 Anemia, unspecified type D64.9 Anemia type: unspecified type Neutropenia, unspecified type D70.9 Leukopenia type: neutropenia Neutropenia type: unspecified Elevated serum creatinine R79.89 Elevated AST (SGOT) R74.01 Overweight (BMI 25.0-29.9) E66.3
[2023-10-08 10:02] VITALS: BP 122/64; PULSE 62; O2SAT 97; BMI 29.9
== END 2023-10-08 11:21 | disposition home or self-care (01) ==
PROVIDERS: PCP Internal Medicine; Visit Provider Internal Medicine
DX: G47.33 Obstructive sleep apnea (adult) (pediatric) (principal); D64.9 Anemia, unspecified; D70.9 Neutropenia, unspecified; R79.89 Other specified abnormal findings of blood chemistry; R74.01 Elevation of levels of liver transaminase levels; E66.3 Overweight
CPT/HCPCS: 99214

== ENCOUNTER 2023-10-09 09:59 | Outpatient (REF) | payer OTHER, SELFPAY ==
[2023-10-09 10:27] LABS: MANUAL DIFF FLAG NO
[2023-10-09 10:49] LABS: Basophils Percent Auto 0.7 % (0-2); Eosinophils Percent Auto 1.4 % (0-4); Hematocrit 39.9 % (42.0-52.0); Hemoglobin 13.4 g/dl (14.0-18.0); Lymphocytes Absolute Auto 1.5 X10*3/uL (1.2-4.9); Lymphocytes Percent Auto 52.7 % (20-40); Mean Corpuscular HGB Conc 33.6 g/dl (31.0-36.0); Mean Corpuscular Hemoglobin 28.6 pg (27.0-33.0); Mean Corpuscular Volume 85.3 fL (80.0-98.0); Mean Platelet Volume 10.6 fL (9.4-12.4); Monocytes Absolute Auto 0.3 X10*3/uL (0.1-1.2); Monocytes Percent Auto 8.8 % (2-11); Neutrophils Percent Auto 36.4 % (45-73); Platelet Count 234 X10*3/uL (160-400); Red Blood Count 4.68 X10*6/uL (4.60-5.80); Red Cell Distribution Width 13.8 % (11.0-16.0); White Blood Count 2.8 X10*3/uL (4.8-10.8)
[2023-10-09 11:26] LABS: Alanine Aminotransferase 26 U/L (0-40); Albumin Level 4.3 g/dL (3.5-5.0); Alkaline Phosphatase 52 U/L (39-117); Anion Gap 11 (12-20); Aspartate Amino Transferase 39 U/L (5-37); Bilirubin Total 0.5 mg/dL (0.0-1.0); Blood Urea Nitrogen 12 mg/dL (9-16); Calcium 9.3 mg/dL (8.4-10.2); Carbon Dioxide 28 mmol/L (22-29); Chloride 104 mmol/L (96-108); Cholesterol 180 mg/dL (<200); Estimated Glomerular Filt Rate 50; Glucose Fasting 91 mg/dL (60-99); HDL Cholesterol 58 mg/dL (>40); Iron 68 mcg/dL (45-160); LDL Cholesterol Calculated 111 mg/dL (<100); Percent Iron Saturation 25 % (15-50); Potassium 4.2 mmol/L (3.3-5.1); Sodium 139 mmol/L (135-145); Total Iron Binding Capacity 267 mcg/dL (228-428); Total Protein 7.4 g/dL (6.5-8.0); Triglycerides 59 mg/dL (<150); Unsaturated Iron Binding 199 ug/dL
[2023-10-09 11:34] LABS: TSH reflex Free T4 1.92 uIU/mL (0.32-4.0); Vitamin D 25-OH Total 37.8 ng/mL (>30)
[2023-10-09 13:15] LABS: Folate 6.3 ng/mL (> or = 4.0); Prostate Specific Antigen Scr 0.41 ng/mL (<0.05-4.0)
[2023-10-09 13:17] LABS: Vitamin B12 272 pg/mL (200-900)
[2023-10-09 15:42] LABS: Appearance Urine Clear; Color Urine Yellow; Glucose Urine UA Negative (Negative); Leukocyte Esterase Urine Negative (Negative); Nitrite Urine Negative (Negative); Specific Gravity - Urine 1.015 (1.005-1.025); Urine Blood Negative (Negative); Urine Ketones Negative (Negative); Urine Protein Negative (Neg-Trace)
[2023-10-10 08:51] LABS: HBc Num1 0.05 S/CO (0.00-0.79); HBsAGNum1 0.31 S/CO (0.00-0.99); Hepatitis B Core Antibody Nonreactive (Nonreactive); Hepatitis B Surface Antigen Negative (Negative); ~HepC Num1 0.11 S/CO (0.00-0.79); ~Hepatitis B Surface Antibody NONREACTIVE (Nonreactive); ~Hepatitis C Antibody Nonreactive (Nonreactive)
[2023-10-13 15:49] LABS: Copper, serum 120 mcg/dL (70-175)
[2023-10-13 18:59] LABS: Zinc 48 mcg/dL (60-130)
[2023-10-14 08:09] LABS: Hematocrit 38.5 % (38.5-50.0); Hemoglobin 13.2 g/dL (13.2-17.1); MCH 28.8 pg (27.0-33.0); MCV 84.1 fL (80.0-100.0); RBC 4.58 Million/uL (4.20-5.80); RDW 13.8 % (11.0-15.0)
== END 2023-10-09 10:00 | disposition home or self-care (01) ==
LOC: HO.LAB 09:59
PROVIDERS: PCP Internal Medicine; Visit Provider Internal Medicine
DX: Z00.00 Encounter for general adult medical examination without abnormal findings (principal); R79.89 Other specified abnormal findings of blood chemistry; Z12.5 Encounter for screening for malignant neoplasm of prostate; G47.33 Obstructive sleep apnea (adult) (pediatric); D64.9 Anemia, unspecified; D72.819 Decreased white blood cell count, unspecified; R74.01 Elevation of levels of liver transaminase levels; D50.9 Iron deficiency anemia, unspecified; R30.0 Dysuria; E55.9 Vitamin D deficiency, unspecified; E53.8 Deficiency of other specified B group vitamins
CPT/HCPCS: 36415; 80053; 80061; 81003; 82306; 82525; 82607; 82746; 83020; 83540; 84153; 84443; 84630; 85014; 85018; 85025; 85041; 86704; 86706; 86803; 87340

== ENCOUNTER 2023-10-29 10:19 | Outpatient (AMB) | payer OTHER, SELFPAY ==
--- NOTE | 2023-10-29 10:21 | A.OFFVIS_ITS ---
Vital Signs 10/29/23 10:24 Height 5 ft 4 in Weight 173 lb BMI 29.7 BP 110/57 L Blood Pressure Location Lt brachial Position Sitting Pulse 64 Intake Visit Reasons: f/u colonoscopy Intake Note: Patient follow up for Colonoscopy results Patient denies any GI issues. 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 Accompanied by: Self / Same As Patient Allergies No Known Allergies Allergy (Verified 10/29/23 10:20) Medication List - Last Reconciled 10/29/23 by Debra Solano PA-C No Known Home Meds HPI Comments Details: A 48-year-old male follows up after recent index screening colonoscopy He tolerated procedure well He has no GI or general complaints Reviewed procedure report, pathology and recommendation Opportunity for questions answered to his satisfaction No nausea, vomiting, abdominal pain hematemesis hematochezia fever or chills PFSH Medical History (Updated 10/29/23 @ 10:47 by Debra Solano PA-C) Overweight (BMI 25.0-29.9) Obesity (BMI 30-39.9) Obstructive sleep apnea Surgical History Hx of colonoscopy Hx of left knee surgery (~2005) Family History Father Congestive heart failure Mother Heart disease Other Diabetes Hypertension Social History Housing: House Alcohol intake: current Alcohol intake frequency: holidays/special occasions only Patient Tobacco Use Status: Current someday Tobacco user Tobacco use type: Cigarette e-Cigarette/Vaping Use: Never Used Substance Use Type: Marijuana service: No Current occupational status: employed Cognitive needs: No Hearing needs: No Vision needs: No Review of Systems Const Details: All systems reviewed and are negative All systems reviewed & are unremarkable except as noted in HPI and below Physical Exam Vital Signs: Last Vital Signs Pulse 64 10/29/23 10:24 BP 110/57 L 10/29/23 10:24 BMI result Body Mass Index 29.7 Const General: cooperative, healthy appearing, comfortable, no acute distress and well developed Orientation/consciousness: patient oriented x3 Limitations: no limitations Resp Effort & Inspection: normal respiratory effort and able to speak in complete sentences Neuro General: patient oriented x3 Extrem General: Yes full ROM Psych Appearance: grossly normal Mental Status: mental status grossly normal Speech and movement: Normal speech and movement present Affect: normal affect Attitude: cooperative Thought process: Normal thought process present Thought content: Normal thought content present Insight: Good insight present (Psych) Judgement: Good judgement present (Psych) Results Reviewed Results Reviewed: mpression and Post Procedure Diagnosis: colon polyp internal hemorrhoids Plan: High fiber diet leaflet Avoid straining at stool, epsom salts and sitz bath, anusol supps or cream Repeat Colonoscopy in 5-7 years if adenomatous polyp, 10 yrs if non adenomatous or earlier if clinically indicated [id number] Status: [facility] Collected: 09/09/23 Location: [facility] Received: 09/09/23 Diagnosis Cecum, polypectomy: Colonic mucosa with small lymphoid aggregates; multiple additional levels examined. Clinical History Pre-Op Dx: Screening Post-Op Dx: Colon polyp, hemorrhoids Microscopic Description Microscopic sections reviewed. Material Received Cecal polyp Gross Description Received in formalin labeled ?cecal polyp? is a 1.1 cm ortega rectangular tissue fragment, submitted in toto in a cassette labeled A. CEDS Copies To Luan Elliott MD [address] [place] [address] [place] [address] Luz Elena Herman MD [address] [place] [address] [place] [address] NOTE: Unless otherwise stated, all tissue is formalin-fixed and paraffin- embedded. Some or all of the immunohistochemical tests reported herein may have been developed and their performance characteristics determined by [facility]. They have not been cleared or approved by the U.S. Food and Drug Administration (FDA). However, the FDA has determined that such clearance or approval is not necessary. This laboratory is certified under the Clinical Laboratory Improvement Amendments of 1988 (CLIA) as qualified to perform high complexity clinical laboratory testing. Electronically Signed By: Maninder Cervantes MD 09/11/23 9933 Patient: Nitin Mcduffie Age/Sex: 47/M MR#: [id number] Page 1 of 1 Assessment & Plan Assessment & Plan (1) Colon polyps: Comment: Very pleasant 48-year-old Gent Cecum, polypectomy: Colonic mucosa with small lymphoid aggregates; multiple additional levels examined. Code(s): K63.5 - Polyp of colon Category: Medical Plan: benign- 10 yr Plan 10 year- place reminder Patient Instructions: 10 year asymptomatic colonoscopy HFD Avoid straining Call with any concerns Coding Level of Care Code Est Pt Level 3 (22042) Diagnoses Colon polyps K63.5 Time Spent (min) 15
[2023-10-29 10:24] VITALS: BP 110/57; PULSE 64; BMI 29.7
== END 2023-10-29 11:31 | disposition home or self-care (01) ==
PROVIDERS: PCP Internal Medicine; Visit Provider Physician Assistant
DX: K63.5 Polyp of colon (principal)
CPT/HCPCS: 99213

== ENCOUNTER → 2023-10-29 10:19 | Outpatient (BNVA) | payer OTHER, SELFPAY | PROVIDERS: PCP Internal Medicine; Visit Provider Physician Assistant ==

== ENCOUNTER 2024-04-12 10:20 | Outpatient (AMB) | payer OTHER, SELFPAY ==
[2024-04-12 10:21] VITALS: BP 100/78; PULSE 73; O2SAT 97; BMI 29.9
--- NOTE | 2024-04-12 10:21 | A.OFFPC_ITS ---
Vital Signs 04/12/24 10:21 Height 5 ft 4 in Weight 174 lb 8 oz BMI 29.9 BP 100/78 Blood Pressure Location Lt brachial Position Sitting Pulse 73 Pulse Source Pulse Oximeter Pulse Oximetry (%) 97 Oxygen Delivery Method Room Air Intake Visit Reasons: Annual Exam [employer] Specialist Required: No Accompanied by: Self / Same As Patient Allergies No Known Allergies Allergy (Verified 04/12/24 10:44) Medication List - Last Reconciled 04/12/24 by Luan Elliott MD No Known Home Meds Tobacco use date assessed: 04/12/24 Dental Screening Dental Screen Date: 04/12/24 Did you have a dental visit in the last 12 months?: Yes Did you have a dental problem in the last 6 months where you did not have access to dental care?: No Was dental information given to patient?: Patient has dentist HPI Annual Exam HPI Details Patient comes in today for his annual physical examination States that he feels well He denies any headaches or dizziness Denies any chest pains, no SOB No nausea/vomiting, no abdominal pain No change in bowel habits noted He denies any acute urinary symptoms He had his labs done back in September 2023 - to discuss his results He had his screening colonoscopy done back on 09/09/2023 - colonoscopy was normal and polyps removed were benign on pathology and he is recommended to get repeat colonoscopy again in 10 years (2033) [facility] Medical History (Updated 04/12/24 @ 11:09 by Luan Elliott MD) History of obstructive sleep apnea Smoker Renal insufficiency Obesity (BMI 30-39.9) Surgical History Hx of colonoscopy Hx of left knee surgery (~2005) Family History Father Congestive heart failure Mother Heart disease Other Diabetes Hypertension Social History Housing: House Alcohol intake: current Alcohol intake frequency: holidays/special occasions only Patient Tobacco Use Status: Current someday Tobacco user Tobacco use type: Cigarette e-Cigarette/Vaping Use: Never Used Substance Use Type: Marijuana service: No Current occupational status: employed Cognitive needs: No Hearing needs: No Vision needs: No Questionnaire PHQ-9 Over the last 2 weeks, how often have you been bothered by any of the following problems? 1. Little interest or pleasure in doing things: nearly every day 2. Feeling down, depressed, or hopeless: not at all 3. Trouble falling or staying asleep, or sleeping too much: not at all 4. Feeling tired or having little energy: several days 5. Poor appetite or overeating: not at all 6. Feeling bad about yourself - or that you are a failure or have let yourself or your family down: not at all 7. Trouble concentrating on things, such as reading the newspaper or watching television: not at all 8. Moving or speaking so slowly that other people could have noticed. Or the opposite - being so fidgety or restless that you have been moving around a lot more than usual: not at all 9. Thoughts that you would be better off or of hurting yourself in some way: not at all Total score: 4 Depression Screening Interpretation: Positive Depression Screening Follow-up: Existing condition and Declines treatment Depression Screening Done: Yes 82286 - PHQ-9 Billing: Yes Source: Developed by Drs. Alcides Tracey, Nusrat Galdamez, José Miguel Lopez and colleagues, with an educational willie from [employer]. Thrive Questionnaire Date Thrive assessed: 04/12/24 I am a: Patient What is your living situation today?: I have a steady place to live Within the past 12 months, did the food you bought not last and you didn't have the money to get more?: Never true Within the past 12 months, did you worry whether your food would run out before you got money to buy more?: Never true Do you have trouble paying for medicines?: No Do you have trouble getting transportation to medical appointments?: No Do you have trouble paying your heating and electricity bill?: No Do you have trouble taking care of your child, family member or friend?: No Do you have trouble with day-to-day activities such as bathing, preparing meals, shopping, managing finances, etc.?: No Are you currently unemployed and looking for a job?: No Are you interested in more education?: No Please select the resources that you would like help with: None Currently or been in a relationship where the following occur: No concerns reported THRIVE Score: 0 AUDIT C Alcohol Use Questionnaire (AUDIT-C) 1. How often do you have a drink containing alcohol?: 2-4 times a month 2. How many drinks containing alcohol do you have on a typical day when you are drinking?: 1 or 2 3. How often do you have six or more drinks on one occasion?: Never Total Score: 2 Score Reviewed/Action Taken: Yes YESENIA-7 AMB Questionnaire YESENIA-7 Date YESENIA - 7 assessed: 04/12/24 Feeling nervous, anxious, or on edge: 0 = Not at all Not being able to stop or control worryin = Not at all Worrying too much about different things: 0 = Not at all Being so restless that it is hard to sit still: 0 = Not at all Becoming easily annoyed or irritable: 0 = Not at all Feeling afraid as if something awful might happen: 0 = Not at all Source: Developed by Drs. Alcides Tracey, Nusrat Galdamez, José Miguel Lopez and colleagues, with an educational willie from [employer]. Review of Systems Const Denies chills, Denies difficulty sleeping, Denies fatigue, Denies fever(s) and Denies headache(s) ENT Denies dysphagia, Denies dizziness, Denies otalgia, Denies headache(s), Denies neck pain, Denies odynophagia and Denies sore throat Card Denies chest pain, Denies palpitations and Denies dyspnea Resp Denies chest congestion, Denies cough, Denies dyspnea and Denies wheezing GI Denies abdominal pain, Denies constipation, Denies dysphagia, Denies heartburn, Denies diarrhea, Denies nausea, Denies odynophagia and Denies vomiting Denies dysuria, Denies nocturia and Denies urinary frequency Musc Denies back pain and Denies neck pain Skin/Breast Denies rash Neuro Denies dizziness and Denies headache(s) Psych Denies anxiety and Denies depression Endo Denies fatigue and Denies palpitations Karson/Lymph Denies easy bruising Aller/Immun Denies wheezing Physical exam (Primary Care) Vital Signs: Last Vital Signs Pulse 73 04/12/24 10:21 BP 100/78 04/12/24 10:21 Pulse Ox 97 04/12/24 10:21 Oxygen Delivery Method Room Air 04/12/24 10:21 BMI result Body Mass Index 29.9 Tobacco/Smoking Status: Tobacco use Status Tobacco use date assessed 04/12/24 04/12/24 10:28 Patient Tobacco Use Status Current someday Tobacco 04/12/24 10:28 Tobacco use type Cigarette 04/12/24 10:28 e-Cigarette/Vaping Use Never Used 04/12/24 10:28 PHQ-9: PHQ-9 Score PHQ-9: Total score 4 04/12/24 10:28 Depression Screening Interpretation: Positive Depression Screening Follow-up: Existing condition and Declines treatment Thrive Assessment: Date of Thrive Assessment Date Thrive assessed 04/12/24 04/12/24 10:28 Currently or been in a relationship where the following occur: No concerns reported Const General: no acute distress and alert HENMT Ears: TM's normal bilaterally and EAC's normal Throat: Yes posterior oropharynx normal and Yes tonsils normal (no TP congestion) Neck Neck: Yes no lymphadenopathy and Yes supple Thyroid: Thyroid normal Resp Auscultation: clear to auscultation bilaterally, no rales and no wheezes Cardio Rate: regular rate Rhythm: regular rhythm Heart sounds: no murmurs GI Palpation (GI): Soft to palpation and nontender Auscultation: normal bowel sounds Skin General skin exam: no rashes or lesions noted Extrem General: Yes no clubbing, cyanosis or edema Results Reviewed Results Reviewed: Laboratory Tests 10/09/23 10/09/23 10:25 12:00 WBC 2.8 L Hgb 13.4 L Hct 39.9 L Plt Count 234 Sodium 139 Potassium 4.2 Creatinine 1.50 H Estimated GFR 50 Fasting Glucose 91 Calcium 9.3 AST 39 H ALT 26 Triglycerides 59 Cholesterol 180 LDL Cholesterol, Calc 111 H HDL Cholesterol 58 PSA Screen 0.41 Vitamin B12 272 25-OH Vitamin D Total 37.8 TSH 1.92 Ur Specific [place] 1.015 Urine Protein Negative Urine Glucose (UA) Negative Urine Blood Negative Urine Nitrite Negative Ur Leukocyte Esterase Negative Zinc 48 L Coding Level of Care Code Est Pt Prev Care 40-64y(63987) Diagnoses Annual physical exam Z00.00 Renal insufficiency N28.9 Elevated AST (SGOT) R74.01 History of obstructive sleep apnea Z86.69 Smoker F17.200 Additional Codes PHQ-9 - 00567 - PHQ-9 Billing: Yes ([id number]) Assessment & Plan Assessment & Plan (1) Annual physical exam: Code(s): Z00.00 - Encounter for general adult medical examination without abnormal findings Category: Medical Plan: Results of his labs done back in September 2023 reviewed and discussed with patient - he is advised that most of his labs are normal except for his slightly depressed renal function - his GFR currently puts him in early stage 3 CKD He had his screening colonoscopy done in August 2023 (normal) and he is recommended to get repeat colonoscopy in 10 years (2033) His PSA was normal on his labs back in September 2023 (2) Renal insufficiency: Code(s): N28.9 - Disorder of kidney and ureter, unspecified Category: Medical Plan: He is advised that his serum creatinine is slightly elevated/GFR is slightly depressed on his labs done back in September 2023 and his numbers back then places him in the early stage 3 CKD category Have advised him to avoid taking any NSAIDs (including Aleve/Naproxen, Motrin or Advil/Ibuprofen, and even Aspirin) - patient states that he has been taking these fairly regularly for aches and pains and will stop taking them starting now Advised that he can try taking OTC Tylenol instead but not more than 2000 mg a day in total or he risks causing his LFTs to go up this time He also admits to drinking some pre-workout supplements a lot - advised that depending on what these contain, they may also not be helpful to his kidneys so he should really try to read the labels and do some research first to see if they can affect his kidneys before he starts taking them Will have him recheck his labs in 6 months for follow up (3) Elevated AST (SGOT): Code(s): R74.01 - Elevation of levels of liver transaminase levels Category: Medical Plan: His AST was slightly elevated but was only 2 points above the normal cut-off Have advised him that weight issues (overweight or obese) can cause one's liver enzymes to go up so losing some weight on his part can help Will continue to monitor his LFTs regularly (4) History of obstructive sleep apnea: Code(s): Z86.69 - Personal history of other diseases of the nervous system and sense organs Category: Medical Plan: Patient reports (+) Hx of ELIZABETH, diagnosed in 2015 when he was residing in [place] He has not used a CPAP device in the past few years - states that he stopped using his device years ago when he was informed that the model he was using may potential be carcinogenic He was referred to [place] Medicine here [place] [facility] [place] and further management and he completed a home sleep study a few months ago, which came out normal He then had an in-lab sleep study done a few weeks ago in August 2023, which also came back normal - advised that at this time, he has NO evidence of sleep apnea and obviously would not require any Tx or the use of any CPAP device (5) Smoker: Code(s): F17.200 - Nicotine dependence, unspecified, uncomplicated Category: Social Hx Plan: Patient is counseled on smoking cessation Plan Follow up in 6 months Orders: Orders Complete Blood Count Auto Diff 6 Months D64.9 - Anemia, unspecified Comprehensive [place] Panel Fast 6 Months E78.00 - Pure hypercholesterolemia, unspecified TSH reflex Free T4 6 Months E78.00 - Pure hypercholesterolemia, unspecified UA CC w/rflx Micro + Cult 6 Months R30.0 - Dysuria Vitamin D 25-OH Total 6 Months E55.9 - Vitamin D deficiency, unspecified Lipid Panel 6 Months E78.00 - Pure hypercholesterolemia, unspecified Prostate Specific Antigen Scr 6 Months Z00.00 - Encounter for general adult medical examination without abnormal findings
== END 2024-04-12 10:53 | disposition home or self-care (01) ==
PROVIDERS: PCP Internal Medicine; Visit Provider Internal Medicine
DX: Z00.00 Encounter for general adult medical examination without abnormal findings (principal); N28.9 Disorder of kidney and ureter, unspecified; R74.01 Elevation of levels of liver transaminase levels; Z86.69 Personal history of other diseases of the nervous system and sense organs; F17.200 Nicotine dependence, unspecified, uncomplicated

== ENCOUNTER → 2024-04-12 10:20 | Outpatient (BNVA) | payer OTHER, SELFPAY | PROVIDERS: PCP Internal Medicine; Visit Provider Internal Medicine | DX: Z00.00 Encounter for general adult medical examination without abnormal findings (principal); N28.9 Disorder of kidney and ureter, unspecified; R74.01 Elevation of levels of liver transaminase levels; F17.210 Nicotine dependence, cigarettes, uncomplicated; Z86.69 Personal history of other diseases of the nervous system and sense organs | CPT/HCPCS: 96127 ==

== ENCOUNTER 2024-10-11 09:41 | Outpatient (AMB) | payer OTHER, SELFPAY ==
[2024-10-11 09:46] VITALS: BP 102/70; PULSE 65; O2SAT 96; BMI 29.0
--- NOTE | 2024-10-11 09:46 | MHC.PC.OV ---
Vital Signs 10/11/24 09:46 Height 5 ft 4 in Weight 169 lb 4 oz BMI 29.0 BP 102/70 Blood Pressure Location Lt brachial Position Sitting Pulse 65 Pulse Source Pulse Oximeter Pulse Oximetry (%) 96 Oxygen Delivery Method Room Air Intake Visit Reasons: 6mth f/u Fur Cutter Required: No Accompanied by: Self / Same As Patient Allergies No Known Allergies Allergy (Verified 10/11/24 10:29) Medication List - Last Reconciled 10/11/24 by Luan Elliott MD No Known Home Meds Tobacco use date assessed: 10/11/24 Dental Screening Dental Screen Date: 10/11/24 Did you have a dental visit in the last 12 months?: Yes Did you have a dental problem in the last 6 months where you did not have access to dental care?: No Was dental information given to patient?: Patient has dentist HPI 6m f/u HPI Details Patient comes in today for his follow up visit States that he feels well He denies any headaches or dizziness Denies any chest pains, no SOB No nausea/vomiting, no abdominal pain No change in bowel habits noted He was not able to get his previously ordered follow up labs done yet - states that he will try to get these done [facility] Medical History History of obstructive sleep apnea Smoker Renal insufficiency Obesity (BMI 30-39.9) Surgical History Hx of colonoscopy Hx of left knee surgery (~2005) Family History Father Congestive heart failure Mother Heart disease Other Diabetes Hypertension Social History Housing: House Alcohol intake: current Alcohol intake frequency: holidays/special occasions only Patient Tobacco Use Status: Current someday Tobacco user Tobacco use type: Cigarette e-Cigarette/Vaping Use: Never Used Substance Use Type: Marijuana service: No Current occupational status: employed Cognitive needs: No Hearing needs: No Vision needs: No Questionnaire PHQ-9 Over the last 2 weeks, how often have you been bothered by any of the following problems? 1. Little interest or pleasure in doing things: not at all 2. Feeling down, depressed, or hopeless: not at all 3. Trouble falling or staying asleep, or sleeping too much: not at all 4. Feeling tired or having little energy: not at all 5. Poor appetite or overeating: not at all 6. Feeling bad about yourself - or that you are a failure or have let yourself or your family down: not at all 7. Trouble concentrating on things, such as reading the newspaper or watching television: not at all 8. Moving or speaking so slowly that other people could have noticed. Or the opposite - being so fidgety or restless that you have been moving around a lot more than usual: not at all 9. Thoughts that you would be better off or of hurting yourself in some way: not at all Total score: 0 Depression Screening Interpretation: Negative Depression Screening Done: Yes 13409 - PHQ-9 Billing: Yes Source: Developed by Drs. Alcides Tracey, Nusrat Galdamez, José Miguel Lopez and colleagues, with an educational willie from [employer]. Thrive Questionnaire Date Thrive assessed: 10/11/24 I am a: Patient What is your living situation today?: I have a steady place to live Within the past 12 months, did the food you bought not last and you didn't have the money to get more?: Never true Within the past 12 months, did you worry whether your food would run out before you got money to buy more?: Never true Do you have trouble paying for medicines?: No Do you have trouble getting transportation to medical appointments?: No Do you have trouble paying your heating and electricity bill?: No Do you have trouble taking care of your child, family member or friend?: No Do you have trouble with day-to-day activities such as bathing, preparing meals, shopping, managing finances, etc.?: No Are you currently unemployed and looking for a job?: No Are you interested in more education?: No Please select the resources that you would like help with: None Currently or been in a relationship where the following occur: No concerns reported THRIVE Score: 0 AUDIT C Alcohol Use Questionnaire (AUDIT-C) 1. How often do you have a drink containing alcohol?: Monthly or less 2. How many drinks containing alcohol do you have on a typical day when you are drinking?: 1 or 2 3. How often do you have six or more drinks on one occasion?: Never Total Score: 1 Score Reviewed/Action Taken: Yes YESENIA-7 AMB Questionnaire YESENIA-7 Date YESENIA - 7 assessed: 10/11/24 Feeling nervous, anxious, or on edge: 0 = Not at all Not being able to stop or control worryin = Not at all Worrying too much about different things: 0 = Not at all Trouble relaxin = Not at all Being so restless that it is hard to sit still: 0 = Not at all Becoming easily annoyed or irritable: 0 = Not at all Feeling afraid as if something awful might happen: 0 = Not at all Total YESENIA-7 score (0-4 normal; 5-9 mild; 10-14 moderate; 15-21 severe): 0 Source: Developed by Drs. Alcides Tracey, Nusrat Galdamez, José Miguel Lopez and colleagues, with an educational willie from [employer]. Review of Systems Const Denies chills, Denies difficulty sleeping, Denies fatigue, Denies fever(s) and Denies headache(s) ENT Denies dysphagia, Denies dizziness, Denies otalgia, Denies headache(s), Denies neck pain, Denies odynophagia and Denies sore throat Card Denies chest pain, Denies palpitations and Denies dyspnea Resp Denies chest congestion, Denies cough and Denies dyspnea GI Denies abdominal pain, Denies constipation, Denies dysphagia, Denies heartburn, Denies diarrhea, Denies nausea, Denies odynophagia and Denies vomiting Denies difficulty urinating, Denies dysuria, Denies nocturia and Denies urinary frequency Musc Denies back pain and Denies neck pain Skin/Breast Denies rash Neuro Denies dizziness and Denies headache(s) Psych Denies anxiety and Denies depression Endo Denies fatigue and Denies palpitations Karson/Lymph Denies easy bruising Physical exam (Primary Care) Vital Signs: Last Vital Signs Pulse 65 10/11/24 09:46 BP 102/70 10/11/24 09:46 Pulse Ox 96 10/11/24 09:46 Oxygen Delivery Method Room Air 05/19/25 09:46 BMI result Body Mass Index 29.0 Tobacco/Smoking Status: Tobacco use Status Tobacco use date assessed 10/11/24 10/11/24 09:52 Patient Tobacco Use Status Current someday Tobacco 10/11/24 09:52 Tobacco use type Cigarette 10/11/24 09:52 e-Cigarette/Vaping Use Never Used 10/11/24 09:52 PHQ-9: PHQ-9 Score PHQ-9: Total score 0 10/11/24 09:52 Depression Screening Interpretation: Negative Thrive Assessment: Date of Thrive Assessment Date Thrive assessed 10/11/24 10/11/24 09:52 Currently or been in a relationship where the following occur: No concerns reported Const General: no acute distress and alert HENMT Ears: TM's normal bilaterally and EAC's normal Throat: Yes posterior oropharynx normal and Yes tonsils normal (no TP congestion) Neck Neck: Yes supple and No lymphadenopathy Thyroid: Thyroid normal Resp Auscultation: clear to auscultation bilaterally, no rales and no wheezes Cardio Rate: regular rate Rhythm: regular rhythm Heart sounds: no murmurs GI Palpation (GI): Soft to palpation and nontender Auscultation: normal bowel sounds General: Yes no CVA tenderness Back/Spine/Pelvis Back: no CVA tenderness Thoracic/Lumbar Spine: No lumbar spinal tenderness Skin Rashes: no rashes Extrem General: Yes no clubbing, cyanosis or edema Coding Level of Care Code Est Pt Level 3 (83096) Diagnoses Renal insufficiency N28.9 Elevated AST (SGOT) R74.01 History of obstructive sleep apnea Z86.69 Smoker F17.200 Additional Codes PHQ-9 - 84800 - PHQ-9 Billing: Yes ([id number]) Assessment & Plan Assessment & Plan (1) Renal insufficiency: Code(s): N28.9 - Disorder of kidney and ureter, unspecified Category: Medical Plan: He is reminded that his serum creatinine was slightly elevated & GFR was slightly depressed on his labs done back in September 2023 and his numbers back then places him in the early stage 3 CKD category Have advised him to continue to avoid taking any NSAIDs (including Aleve/Naproxen, Motrin or Advil/Ibuprofen, and even Aspirin) - patient states that he was taking these fairly regularly for aches and pains and stopped taking them as soon as we told him to last year Have reminded him that he can take OTC Tylenol instead but not more than 2000 mg a day in total or he risks causing his LFTs to go up this time He also admitted to drinking some pre-workout supplements a lot but stopped all of them as well after his last visit Have instructed him to get his previously labs done CAROLYN to complete his exam today (2) Elevated AST (SGOT): Code(s): R74.01 - Elevation of levels of liver transaminase levels Category: Medical Plan: His AST was slightly elevated but was only 2 points above the normal cut-off Have advised him that weight issues (overweight or obese) can cause his liver enzymes to go up so losing some weight on his part can help Will continue to monitor his LFTs regularly (3) History of obstructive sleep apnea: Code(s): Z86.69 - Personal history of other diseases of the nervous system and sense organs Category: Medical Plan: Patient reports (+) Hx of ELIZABETH, diagnosed in 2015 when he was residing in [place] He has not used a CPAP device in the past few years - states that he stopped using his device years ago when he was informed that the model he was using may potential be carcinogenic He was referred to Sleep Medicine here at [facility] [place] for reevaluation and further management and he completed a home sleep study a few months ago, which came out normal He then had an in-lab sleep study done a few weeks ago in August 2023, which also came back normal - advised that at this time, he has NO evidence of sleep apnea and does not need any Tx or the use of any CPAP device (4) Smoker: Code(s): F17.200 - Nicotine dependence, unspecified, uncomplicated Category: Social Hx Plan: Patient is counseled on complete smoking cessation Plan To return as scheduled in March 2025 for his next annual physical examination
== END 2024-10-11 10:34 | disposition home or self-care (01) ==
LOC: HO.HMCH 09:42
PROVIDERS: PCP Internal Medicine; Visit Provider Internal Medicine
DX: N28.9 Disorder of kidney and ureter, unspecified (principal); R74.01 Elevation of levels of liver transaminase levels; Z86.69 Personal history of other diseases of the nervous system and sense organs; F17.200 Nicotine dependence, unspecified, uncomplicated

== ENCOUNTER → 2024-10-11 09:41 | Outpatient (BNVA) | payer OTHER, SELFPAY | PROVIDERS: PCP Internal Medicine; Visit Provider Internal Medicine | DX: N28.9 Disorder of kidney and ureter, unspecified (principal); R74.01 Elevation of levels of liver transaminase levels; F17.210 Nicotine dependence, cigarettes, uncomplicated; Z86.69 Personal history of other diseases of the nervous system and sense organs | CPT/HCPCS: 96127 ==

== ENCOUNTER 2024-11-30 09:12 | Outpatient (REF) | payer OTHER, SELFPAY ==
[2024-11-30 09:28] LABS: MANUAL DIFF FLAG NO
[2024-11-30 09:38] LABS: Hematocrit 40.1 % (42.0-52.0); Hemoglobin 13.2 g/dl (14.0-18.0); Imm Gran Abs Auto 0.01 X10*3/uL (0.00-0.03); Imm Gran Pct Auto 0.3 % (0.0-0.4); Lymphocytes Absolute Auto 1.5 X10*3/uL (1.2-4.9); Mean Corpuscular HGB Conc 32.9 g/dl (31.0-36.0); Mean Corpuscular Hemoglobin 29.0 pg (27.0-33.0); Mean Corpuscular Volume 88.1 fL (80.0-98.0); NRBC Abs Auto 0.000 X10*3/uL (0.0-0.012); NRBC Pct Auto 0.0 /100WBC (0.0-0.2); Platelet Count 176 X10*3/uL (160-400); Red Blood Count 4.55 X10*6/uL (4.60-5.80); White Blood Count 3.9 X10*3/uL (4.8-10.8)
[2024-11-30 10:31] LABS: Appearance Urine Clear; Glucose Urine UA Negative (Negative); PH 6.0 (5.0-9.0); Specific Gravity - Urine 1.020 (1.005-1.025)
[2024-11-30 10:44] LABS: Alanine Aminotransferase 37 U/L (0-40); Albumin Level 4.3 g/dL (3.5-5.0); Alkaline Phosphatase 73 U/L (39-117); Anion Gap 11 (12-20); Aspartate Amino Transferase 37 U/L (5-37); Blood Urea Nitrogen 14 mg/dL (9-16); Calcium 9.2 mg/dL (8.4-10.2); Carbon Dioxide 27 mmol/L (22-29); Chloride 105 mmol/L (96-108); Cholesterol 117 mg/dL (<200); Estimated Glomerular Filt Rate 58; HDL Cholesterol 34 mg/dL (>40); Potassium 4.0 mmol/L (3.3-5.1); Sodium 139 mmol/L (135-145); Total Protein 7.6 g/dL (6.5-8.0); Triglycerides 77 mg/dL (<150)
== END 2024-11-30 09:13 | disposition home or self-care (01) ==
LOC: HO.LAB 09:12
PROVIDERS: PCP Internal Medicine; Visit Provider Internal Medicine
DX: Z00.00 Encounter for general adult medical examination without abnormal findings (principal); E55.9 Vitamin D deficiency, unspecified; E78.00 Pure hypercholesterolemia, unspecified; D64.9 Anemia, unspecified; R30.0 Dysuria
CPT/HCPCS: 36415; 80053; 80061; 81003; 82306; 84153; 84443; 85025

== ENCOUNTER 2025-03-04 15:59 | Outpatient (AMB) | payer OTHER, SELFPAY ==
[2025-03-04 16:01] VITALS: BP 120/82; PULSE 64; O2SAT 96; BMI 29.8
--- NOTE | 2025-03-04 16:01 | A.OFFPC_ITS ---
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 Accompanied by: Self / Same As Patient Allergies No Known Allergies Allergy (Verified 03/04/25 16:42) Medication List - Last Reconciled 03/04/25 by Luan Elliott MD doxycycline hyclate 100 mg PO BID Tobacco use date assessed: 03/04/25 Dental Screening Dental Screen Date: 03/04/25 Did you have a dental visit in the last 12 months?: Yes Did you have a dental problem in the last 6 months where you did not have access to dental care?: No Was dental information given to patient?: Patient has dentist HPI back pain, f/u labs HPI Details Patient comes in today for his follow up visit States that he feels okay He denies any headaches or dizziness Denies any chest pains, no SOB No nausea/vomiting, no abdominal pain No change in bowel habits noted He would like to know how he did on his labs done a few months ago Adds that he will be starting on medications for PrEP as prescribed by his other specialist [facility] Medical History History of obstructive sleep apnea Smoker Renal insufficiency Obesity (BMI 30-39.9) Surgical History Hx of colonoscopy Hx of left knee surgery (~2005) Family History Father Congestive heart failure Mother Heart disease Other Diabetes Hypertension Social History Housing: House Alcohol intake: current Alcohol intake frequency: holidays/special occasions only Patient Tobacco Use Status: Current someday Tobacco user Tobacco use type: Cigarette e-Cigarette/Vaping Use: Never Used Substance Use Type: Marijuana service: No Current occupational status: employed Cognitive needs: No Hearing needs: No Vision needs: No Questionnaire PHQ-9 Over the last 2 weeks, how often have you been bothered by any of the following problems? Depression Screening Interpretation: Negative Depression Screening Done: Yes Source: Developed by Drs. Alcides Tracey, Nusrat Galdamez, José Miguel Lopez and colleagues, with an educational willie from [employer]. Thrive Questionnaire Date Thrive assessed: 10/11/24 I am a: Patient What is your living situation today?: I have a steady place to live Within the past 12 months, did the food you bought not last and you didn't have the money to get more?: Never true Within the past 12 months, did you worry whether your food would run out before you got money to buy more?: Never true Do you have trouble paying for medicines?: No Do you have trouble getting transportation to medical appointments?: No Do you have trouble paying your heating and electricity bill?: No Do you have trouble taking care of your child, family member or friend?: No Do you have trouble with day-to-day activities such as bathing, preparing meals, shopping, managing finances, etc.?: No Are you currently unemployed and looking for a job?: No Are you interested in more education?: No Please select the resources that you would like help with: None Currently or been in a relationship where the following occur: No concerns reported THRIVE Score: 0 AUDIT C Alcohol Use Questionnaire (AUDIT-C) 1. How often do you have a drink containing alcohol?: Monthly or less 2. How many drinks containing alcohol do you have on a typical day when you are drinking?: 1 or 2 3. How often do you have six or more drinks on one occasion?: Never Total Score: 1 Score Reviewed/Action Taken: Yes YESENIA-7 AMB Questionnaire YESENIA-7 Date YESENIA - 7 assessed: 10/11/24 Source: Developed by Drs. Alcides Tracey, Nusrat Galdamez, José Miguel Lopez and colleagues, with an educational willie from [employer]. Review of Systems Const Denies chills, Denies fatigue, Denies fever(s) and Denies headache(s) ENT Denies dysphagia, Denies dizziness, Denies otalgia, Denies headache(s), Denies neck pain, Denies odynophagia and Denies sore throat Card Denies chest pain, Denies palpitations and Denies dyspnea Resp Denies chest congestion, Denies cough and Denies dyspnea GI Denies abdominal pain, Denies constipation, Denies dysphagia, Denies heartburn, Denies diarrhea, Denies nausea, Denies odynophagia and Denies vomiting Denies difficulty urinating, Denies dysuria, Denies nocturia and Denies urinary frequency Musc Denies back pain and Denies neck pain Skin/Breast Denies rash Neuro Denies dizziness and Denies headache(s) Psych Denies anxiety and Denies depression Endo Denies fatigue and Denies palpitations Karson/Lymph Denies easy bruising Physical exam (Primary Care) Vital Signs: Last Vital Signs Pulse 64 03/04/25 16:01 BP 120/82 03/04/25 16:01 Pulse Ox 96 03/04/25 16:01 Oxygen Delivery Method Room Air 03/04/25 16:01 BMI result Body Mass Index 29.8 Tobacco/Smoking Status: Tobacco use Status Tobacco use date assessed 03/04/25 03/04/25 16:11 Patient Tobacco Use Status Current someday Tobacco 03/04/25 16:01 Tobacco use type Cigarette 03/04/25 16:01 e-Cigarette/Vaping Use Never Used 03/04/25 16:01 Depression Screening Interpretation: Negative Thrive Assessment: Date of Thrive Assessment Date Thrive assessed 10/11/24 03/04/25 16:01 Currently or been in a relationship where the following occur: No concerns reported Const General: no acute distress and alert HENMT Ears: TM's normal bilaterally and EAC's normal Throat: Yes posterior oropharynx normal and Yes tonsils normal (no TP congestion) Neck Neck: Yes supple and No lymphadenopathy Thyroid: Thyroid normal Resp Auscultation: clear to auscultation bilaterally, no rales and no wheezes Cardio Rate: regular rate Rhythm: regular rhythm Heart sounds: no murmurs GI Palpation (GI): Soft to palpation and nontender Auscultation: normal bowel sounds General: Yes no CVA tenderness Back/Spine/Pelvis Back: no CVA tenderness Thoracic/Lumbar Spine: No lumbar spinal tenderness Skin Rashes: no rashes Extrem General: Yes no clubbing, cyanosis or edema Results Reviewed Results Reviewed: Laboratory Tests 11/30/24 11/30/24 09:23 09:27 WBC 3.9 L Hgb 13.2 L Hct 40.1 L Plt Count 176 Sodium 139 Potassium 4.0 Creatinine 1.32 Estimated GFR 58 Fasting Glucose 102 H Calcium 9.2 AST 37 ALT 37 Triglycerides 77 Cholesterol 117 LDL Cholesterol, Calc 68 HDL Cholesterol 34 L PSA Screen 0.34 25-OH Vitamin D Total 26.3 L TSH 1.51 Ur Specific [place] 1.020 Urine Protein Negative Urine Glucose (UA) Negative Urine Blood Negative Urine Nitrite Negative Ur Leukocyte Esterase Negative Coding Level of Care Code Est Pt Level 4 (11437) Diagnoses Renal insufficiency N28.9 Elevated AST (SGOT) R74.01 History of obstructive sleep apnea Z86.69 Smoker F17.200 Assessment & Plan Assessment & Plan (1) Renal insufficiency: Code(s): N28.9 - Disorder of kidney and ureter, unspecified Category: Medical Plan: Results of his labs done a few months ago reviewed and discussed with patient His serum creatinine was slightly elevated & GFR was slightly depressed on his labs done last year in September 2023 and his numbers back then places him in the early stage 3 CKD category Have reassured patient that his renal function has improved somewhat on his more recent labs He is advised to continue to avoiding any NSAIDs (including Aleve/Naproxen, Motrin or Advil/Ibuprofen, and even Aspirin) - patient states that he was taking these fairly regularly for aches and pains and stopped taking them as soon as we told him this last year Have reminded him that he can take OTC Tylenol instead but not more than 2000 mg a day in total or he risks causing his LFTs to go up this time He also admitted to drinking some pre-workout supplements a lot but stopped all of them as well after his last visit (2) Elevated AST (SGOT): Code(s): R74.01 - Elevation of levels of liver transaminase levels Category: Medical Plan: His LFTs are now normal on his labs done a few months ago - AST was slightly elevated on his previous labs and were likely related to his weight Will continue to monitor his LFTs regularly (3) History of obstructive sleep apnea: Code(s): Z86.69 - Personal history of other diseases of the nervous system and sense organs Category: Medical Plan: Patient reports (+) Hx of ELIZABETH, diagnosed in 2016 when he was still residing in [place] He has not used a CPAP device in the past few years - states that he stopped using his device years ago when he was informed that the model he was using may potential be carcinogenic He was referred to Sleep Medicine here at [facility] [place] for reevaluation and further management and he completed a home sleep study a few months ago, which came out normal He then had an in-lab sleep study done a few weeks ago in August 2023, which also came back normal - was advised that at this time, he has NO evidence of sleep apnea and does not need any Tx or the use of any CPAP device (4) Smoker: Code(s): F17.200 - Nicotine dependence, unspecified, uncomplicated Category: Social Hx Plan: Patient is counseled on complete smoking cessation Plan To return as scheduled next month for his annual physical examination
== END 2025-03-04 16:52 | disposition home or self-care (01) ==
LOC: HO.HMCH 15:59
PROVIDERS: PCP Internal Medicine; Visit Provider Internal Medicine
DX: N28.9 Disorder of kidney and ureter, unspecified (principal); R74.01 Elevation of levels of liver transaminase levels; Z86.69 Personal history of other diseases of the nervous system and sense organs; F17.200 Nicotine dependence, unspecified, uncomplicated

== ENCOUNTER 2025-04-13 09:12 | Outpatient (REF) | payer OTHER, SELFPAY ==
[2025-04-13 10:15] LABS: MANUAL DIFF FLAG NO
[2025-04-13 10:44] LABS: Hematocrit 43.4 % (42.0-52.0); Hemoglobin 14.0 g/dl (14.0-18.0); Imm Gran Abs Auto 0.01 X10*3/uL (0.00-0.03); Imm Gran Pct Auto 0.4 % (0.0-0.4); Lymphocytes Absolute Auto 1.2 X10*3/uL (1.2-4.9); Mean Corpuscular HGB Conc 32.3 g/dl (31.0-36.0); Mean Corpuscular Hemoglobin 27.6 pg (27.0-33.0); Mean Corpuscular Volume 85.4 fL (80.0-98.0); NRBC Abs Auto 0.000 X10*3/uL (0.0-0.012); NRBC Pct Auto 0.0 /100WBC (0.0-0.2); Platelet Count 217 X10*3/uL (160-400); Red Blood Count 5.08 X10*6/uL (4.60-5.80); White Blood Count 2.8 X10*3/uL (4.8-10.8)
[2025-04-13 13:26] LABS: Alanine Aminotransferase 25 U/L (0-40); Albumin Level 4.7 g/dL (3.5-5.0); Alkaline Phosphatase 58 U/L (39-117); Anion Gap 10 (12-20); Aspartate Amino Transferase 39 U/L (5-37); Blood Urea Nitrogen 9 mg/dL (9-16); Calcium 9.3 mg/dL (8.4-10.2); Carbon Dioxide 29 mmol/L (22-29); Chloride 107 mmol/L (96-108); Cholesterol 170 mg/dL (<200); Estimated Glomerular Filt Rate 53; HDL Cholesterol 56 mg/dL (>40); Potassium 4.6 mmol/L (3.3-5.1); Sodium 141 mmol/L (135-145); Total Protein 7.9 g/dL (6.5-8.0); Triglycerides 81 mg/dL (<150)
== END 2025-04-13 09:13 | disposition home or self-care (01) ==
LOC: HO.LAB 09:12
PROVIDERS: PCP Internal Medicine; Visit Provider Internal Medicine
DX: Z00.00 Encounter for general adult medical examination without abnormal findings (principal); D64.9 Anemia, unspecified; N28.9 Disorder of kidney and ureter, unspecified; E78.00 Pure hypercholesterolemia, unspecified; E55.9 Vitamin D deficiency, unspecified; R74.01 Elevation of levels of liver transaminase levels; K64.9 Unspecified hemorrhoids; F17.210 Nicotine dependence, cigarettes, uncomplicated; Z12.5 Encounter for screening for malignant neoplasm of prostate; Z86.69 Personal history of other diseases of the nervous system and sense organs; Z79.899 Other long term (current) drug therapy
CPT/HCPCS: 36415; 80053; 80061; 82306; 84153; 84443; 85025; 96127

== ENCOUNTER 2025-04-13 09:12 | Outpatient (AMB) | payer OTHER, SELFPAY ==
[2025-04-13 09:16] VITALS: BP 104/70; PULSE 68; O2SAT 96; BMI 29.4
--- NOTE | 2025-04-13 09:16 | A.OFFPC_ITS ---
Vital Signs 04/13/25 09:16 Height 5 ft 4 in Weight 171 lb 2 oz BMI 29.4 BP 104/70 Blood Pressure Location Lt brachial Position Sitting Pulse 68 Pulse Source Pulse Oximeter Pulse Oximetry (%) 96 Oxygen Delivery Method Room Air Intake Visit Reasons: Annual Exam Spring Former Required: No Accompanied by: Self / Same As Patient Allergies No Known Allergies Allergy (Verified 04/13/25 09:41) Medication List - Last Reconciled 04/13/25 by Luan Elliott MD cabotegravir ER (Apretude) 600 mg IM [id number] Tobacco use date assessed: 04/13/25 Dental Screening Dental Screen Date: 04/13/25 Did you have a dental visit in the last 12 months?: Yes Did you have a dental problem in the last 6 months where you did not have access to dental care?: No Was dental information given to patient?: Patient has dentist HPI Annual Exam HPI Details Patient comes in today for his annual physical examination States that he feels okay He denies any headaches or dizziness Denies any chest pains, no SOB No nausea/vomiting, no abdominal pain No change in bowel habits noted He denies any acute urinary symptoms He had his screening colonoscopy last done with Dr. Herman last year (2023) and his next colonoscopy will be due in 10 years (2033) HPI Comments History of Present Illness Details - The patient is a 49-year-old male pres enting for annual physical exam/ annual wellness visit and management of chronic conditions. - The patient has a history of syphilis, for which he was treated with doxycycline for one month. - He is now receiving Apretude injection s every two months as pre-exposure prophylaxis (PrEP), which was started in January 2025 - He is followed by an infectious diseas e specialist, Dr. Shi at [facility], and a summary of his care is pending. - He underwent a colonoscopy in September 12, which revealed a polyp that was found to be benign lymphoid tissue. - The procedure also noted small, grade 1 internal hemorrhoids. - He has a history of renal insufficienc y and has been advised to maintain adequate oral fluid intake and to completely avoid all NSAIDs such as ibuprofen, Aleve, Motrin, Advil, naproxen and aspirin. - The patient denies having sleep apnea - he had sleep studies (both home and in-lab) done over the past couple of years and they have all come out negative - Past surgical history includes a left knee surgery due to fracture/injury Results - Colonoscopy (August 2023): A removed po lyp was benign lymphoid tissue. Noted small, grade 1 internal hemorrhoids. [facility] Medical History History of obstructive sleep apnea Smoker Renal insufficiency Obesity (BMI 30-39.9) Surgical History Hx of colonoscopy Hx of left knee surgery (~2005) Family History Father Congestive heart failure Mother Heart disease Other Diabetes Hypertension Social History Housing: House Alcohol intake: current Alcohol intake frequency: holidays/special occasions only Patient Tobacco Use Status: Current someday Tobacco user Tobacco use type: Cigarette e-Cigarette/Vaping Use: Never Used Substance Use Type: Marijuana service: No Current occupational status: employed Cognitive needs: No Hearing needs: No Vision needs: No Questionnaire PHQ-9 Over the last 2 weeks, how often have you been bothered by any of the following problems? 1. Little interest or pleasure in doing things: not at all 2. Feeling down, depressed, or hopeless: not at all 3. Trouble falling or staying asleep, or sleeping too much: not at all 4. Feeling tired or having little energy: not at all 5. Poor appetite or overeating: not at all 6. Feeling bad about yourself - or that you are a failure or have let yourself or your family down: not at all 7. Trouble concentrating on things, such as reading the newspaper or watching television: not at all 8. Moving or speaking so slowly that other people could have noticed. Or the opposite - being so fidgety or restless that you have been moving around a lot more than usual: not at all 9. Thoughts that you would be better off or of hurting yourself in some way: not at all Total score: 0 Depression Screening Interpretation: Negative Depression Screening Done: Yes 91863 - PHQ-9 Billing: Yes Source: Developed by Drs. Alcides Tracey, Nusrat Galdamez, José Miguel Lopez and colleagues, with an educational willie from [employer]. Thrive Questionnaire Date Thrive assessed: 04/13/25 I am a: Patient What is your living situation today?: I have a steady place to live Within the past 12 months, did the food you bought not last and you didn't have the money to get more?: Never true Within the past 12 months, did you worry whether your food would run out before you got money to buy more?: Never true Do you have trouble paying for medicines?: No Do you have trouble getting transportation to medical appointments?: No Do you have trouble paying your heating and electricity bill?: No Do you have trouble taking care of your child, family member or friend?: No Do you have trouble with day-to-day activities such as bathing, preparing meals, shopping, managing finances, etc.?: No Are you currently unemployed and looking for a job?: No Are you interested in more education?: No Please select the resources that you would like help with: None Currently or been in a relationship where the following occur: No concerns reported THRIVE Score: 0 AUDIT C Alcohol Use Questionnaire (AUDIT-C) 1. How often do you have a drink containing alcohol?: Monthly or less 2. How many drinks containing alcohol do you have on a typical day when you are drinking?: 1 or 2 3. How often do you have six or more drinks on one occasion?: Never Total Score: 1 Score Reviewed/Action Taken: Yes YESENIA-7 AMB Questionnaire YESENIA-7 Date YESENIA - 7 assessed: 04/13/25 Feeling nervous, anxious, or on edge: 0 = Not at all Not being able to stop or control worryin = Not at all Worrying too much about different things: 0 = Not at all Trouble relaxin = Not at all Being so restless that it is hard to sit still: 0 = Not at all Becoming easily annoyed or irritable: 0 = Not at all Feeling afraid as if something awful might happen: 0 = Not at all Total YESENIA-7 score (0-4 normal; 5-9 mild; 10-14 moderate; 15-21 severe): 0 Source: Developed by Nusrat Noble. Rudolph, José Miguel Lopez and colleagues, with an educational willie from [employer]. Review of Systems Const Denies chills, Denies fatigue, Denies fever(s), Denies headache(s), Denies malaise and Denies weakness Eyes Denies blurry vision, Denies change in vision, Denies irritation and Denies itchy eyes ENT Denies dysphagia, Denies dizziness, Denies otalgia, Denies headache(s), Denies nasal congestion, Denies neck pain, Denies odynophagia and Denies sore throat Card Denies rapid heart rate, Denies irregular heart rhythm, Denies palpitations and Denies dyspnea Resp Denies chest congestion, Denies cough, Denies dyspnea and Denies wheezing GI Denies abdominal pain, Denies bloating, Denies constipation, Denies dysphagia, Denies heartburn, Denies diarrhea, Denies nausea, Denies odynophagia and Denies vomiting Denies hematuria, Denies difficulty urinating, Denies dysuria, Denies urinary frequency and Denies urinary urgency Musc Denies back pain, Denies arthralgias, Denies joint swelling, Denies muscle weakness and Denies neck pain Skin/Breast Denies change in pigmentation, Denies lesions, Denies rash and Denies unusual bruising Neuro Denies dizziness, Denies headache(s), Denies paresthesias and Denies weakness Endo Denies fatigue and Denies palpitations Aller/Immun Denies itchy eyes and Denies wheezing Physical exam (Primary Care) Vital Signs: Last Vital Signs Pulse 68 04/13/25 09:16 BP 104/70 04/13/25 09:16 Pulse Ox 96 04/13/25 09:16 Oxygen Delivery Method Room Air 04/13/25 09:16 BMI result Body Mass Index 29.4 Tobacco/Smoking Status: Tobacco use Status Tobacco use date assessed 04/13/25 04/13/25 09:22 Patient Tobacco Use Status Current someday Tobacco 04/13/25 09:22 Tobacco use type Cigarette 04/13/25 09:22 e-Cigarette/Vaping Use Never Used 04/13/25 09:22 PHQ-9: PHQ-9 Score PHQ-9: Total score 0 04/13/25 09:22 Depression Screening Interpretation: Negative Thrive Assessment: Date of Thrive Assessment Date Thrive assessed 04/13/25 04/13/25 09:22 Currently or been in a relationship where the following occur: No concerns reported Const General: no acute distress, alert and awake Orientation/consciousness: patient oriented x3 [facility] Head: Yes normocephalic and Yes atraumatic Ears: external ears normal, TM's normal bilaterally and EAC's normal General nose exam: No nasal discharge present Face and sinus: Yes normal facial exam and Yes sinuses nontender Teeth and gingiva: dentition normal Throat: Yes posterior oropharynx normal and Yes tonsils normal (no TP congestion) Eyes Eyelids: Yes eyelids normal Conjunctivae: conjunctivae normal Pupils: Equal, round and reactive pupils present EOM: EOMs intact bilaterally Neck Neck: Yes no lymphadenopathy and Yes supple Thyroid: Thyroid normal Resp Auscultation: clear to auscultation bilaterally, no rales and no wheezes Cardio Rate: regular rate Rhythm: regular rhythm Heart sounds: no murmurs GI Palpation (GI): Soft to palpation, nontender and No hepatosplenomegaly present Auscultation: normal bowel sounds General: Yes no CVA tenderness Back/Spine/Pelvis Back: no CVA tenderness Thoracic/Lumbar Spine: thoracic and lumbar spine normal to inspection Skin Lesions: no lesions Rashes: no rashes Neuro General: patient oriented x3, moves all extremities, no focal motor deficits and CN's II-XI intact bilaterally Cranial nerves: Yes Equal, round and reactive pupils present Cognition (Neuro): normal cognition Gait exam (Neuro): Normal gait present Extrem General: Yes no clubbing, cyanosis or edema Coding Level of Care Code Est Pt Prev Care 40-64y(70618) Diagnoses Annual physical exam Z00.00 Renal insufficiency N28.9 Elevated AST (SGOT) R74.01 History of obstructive sleep apnea Z86.69 Smoker F17.200 On pre-exposure prophylaxis for HIV Z79.899 Additional Codes PHQ-9 - 99853 - PHQ-9 Billing: Yes ([id number]) Assessment & Plan Assessment & Plan (1) Annual physical exam: Code(s): Z00.00 - Encounter for general adult medical examination without abnormal findings Category: Medical Plan: Check labs to complete his annual exam today He had his screening colonoscopy last done in August 2023 - (+) internal hemorrhoids and a benign polyp and his next screening colonoscopy will be due in 10 years (2034) Patient is also currently on Cabotegravir ER IM Q 2 months for PrEP (2) Renal insufficiency: Code(s): N28.9 - Disorder of kidney and ureter, unspecified Category: Medical Plan: Patient's serum creatinine was slightly elevated & GFR was slightly depressed on his labs done last year in September 2023 and his numbers back then places him in the early stage 3 CKD category Have reassured patient that his renal function has improved somewhat on his more recent labs done in November 2024 He is reminded to continue to avoid taking any NSAIDs (including Aleve/Naproxen, Motrin or Advil/Ibuprofen, and even Aspirin) - patient states that he was taking these fairly regularly for aches and pains in the past and stopped taking them completely as soon as we told him this last year Have reminded him that he can take OTC Tylenol instead but not more than 2000 mg a day in total or he risks causing his LFTs to go up this time He also admitted to drinking a lot of pre-workout supplements before but stopped all of them as well after his last visit (3) Elevated AST (SGOT): Code(s): R74.01 - Elevation of levels of liver transaminase levels Category: Medical Plan: His LFTs were back to normal on his labs done a few months ago in November 2024 - his AST was slightly elevated on his previous labs done last year and were likely related to his weight Will continue to monitor his LFTs regularly (4) History of obstructive sleep apnea: Code(s): Z86.69 - Personal history of other diseases of the nervous system and sense organs Category: Medical Plan: Patient reports (+) Hx of ELIZABETH, diagnosed in 2016 when he was still residing in [place] He has not used a CPAP device in the past few years - states that he stopped using his device years ago when he was informed that the model he was using may potential be carcinogenic He was referred to Sleep Medicine here at [facility] for reevaluation and further management and he completed a home sleep study last year, which came out normal He then had an in-lab sleep study done in August 2023, which also came back normal - was advised that at the time, he has NO evidence of sleep apnea and does not need any Tx or the use of any CPAP device (5) Smoker: Code(s): F17.200 - Nicotine dependence, unspecified, uncomplicated Category: Social Hx Plan: Patient is counseled again on complete smoking cessation (6) On pre-exposure prophylaxis for HIV: Code(s): Z79.899 - Other long term care pharmacist (current) drug therapy Category: Medical Plan Plan Patient was informed and verbally consented to the use of an ambient scribe for clinic note documentation during this visit. 1. Wellness Exam - Labs will be ordered including liver function tests, kidney function tests, a cholesterol panel, and a prostate-specific antigen (PSA) for screening. - Will await a summary from the patient's infectious disease specialist at [facility] before ordering further testing. - Recommended follow-up in approximately six months, around September. 2. History Of Syphilis - The patient is managed by an infectious disease specialist with Apretude injections every two months for PrEP. - Will await the specialist's summary to confirm the Apretude dosage and review their management plan. - HIV testing will be deferred pending review of the specialist summary, as it is part of their protocol. 3. Benign Neoplasm Of Colon - The patient's colonoscopy in August 2023 showed a benign polyp. - He is advised to follow up for a repeat colonoscopy in 10 years, in 2033. - Advised to maintain healthy bowel habits. 4. Kidney Disease, Unspecified - Advised to maintain adequate fluid intake. - Counseled to avoid NSAIDs including ibuprofen, Aleve, Motrin, Advil, naproxen, and aspirin. - Tylenol is acceptable for use, with a maximum dose of 2000 mg per day. 5. Hemorrhoids - The prior colonoscopy noted small, grade 1 internal hemorrhoids, which are currently asymptomatic. - No active management is required at this time. Discussion Notes I informed the patient that his colonoscopy from August 2023 showed a benign polyp, and he does not need another screening for 10 years. We reviewed the importance of protecting his kidneys by maintaining good hydration and avoiding all NSAIDs and aspirin; I advised that Tylenol up to 2000 mg per day is safe. We discussed his ongoing care with an infectious disease specialist for a history of syphilis, which involves Apretude injections every two months. I explained that I will order fasting labs today, including a CMP, lipid panel, and a PSA for prostate screening. I will wait for the summary from his specialist before proceeding with any further testing, such as for HIV. I advised him to follow up in six months or sooner if any concerns arise. Patient Instructions - Make sure to drink plenty of fluids to protect your kidneys. - Avoid taking pain relievers like Ibuprofen, Aleve, Motrin, Advil, Naproxen, and aspirin. - If you need pain relief, you may take Tylenol, but do not exceed 2,000 milligrams in a single day. - Please go to the lab to have your blood drawn today for the ordered tests. You should not eat before the blood draw. - Your last colonoscopy was normal, so you do not need another one for 10 years. - Please schedule a follow-up appointment in about six months. Call us if you need anything before then. Follow up in 6 months Orders: Orders Complete Blood Count Auto Diff Today D64.9 - Anemia, unspecified, N28.9 - Disorder of kidney and ureter, unspecified, Z00.00 - Encounter for general adult medical examination without abnormal findings Lipid Panel Today E78.00 - Pure hypercholesterolemia, unspecified, N28.9 - Disorder of kidney and ureter, unspecified, Z00.00 - Encounter for general adult medical examination without abnormal findings UA CC w/rflx Micro + Cult Today N28.9 - Disorder of kidney and ureter, unspecified, R30.0 - Dysuria, Z00.00 - Encounter for general adult medical examination without abnormal findings Comprehensive [place]. Panel Fast Today E78.00 - Pure hypercholesterolemia, unspecified, N28.9 - Disorder of kidney and ureter, unspecified, Z00.00 - Encounter for general adult medical examination without abnormal findings TSH reflex Free T4 Today E78.00 - Pure hypercholesterolemia, unspecified, N28.9 - Disorder of kidney and ureter, unspecified, Z00.00 - Encounter for general adult medical examination without abnormal findings Vitamin D 25-OH Total Today E55.9 - Vitamin D deficiency, unspecified, N28.9 - Disorder of kidney and ureter, unspecified, Z00.00 - Encounter for general adult medical examination without abnormal findings Prostate Specific Antigen Scr Today N28.9 - Disorder of kidney and ureter, unspecified, Z00.00 - Encounter for general adult medical examination without ab normal findings
== END 2025-04-13 09:54 | disposition home or self-care (01) ==
LOC: HO.HMCH 09:13
PROVIDERS: PCP Internal Medicine; Visit Provider Internal Medicine
DX: Z00.00 Encounter for general adult medical examination without abnormal findings (principal); N28.9 Disorder of kidney and ureter, unspecified; R74.01 Elevation of levels of liver transaminase levels; Z86.69 Personal history of other diseases of the nervous system and sense organs; F17.200 Nicotine dependence, unspecified, uncomplicated; Z79.899 Other long term (current) drug therapy

== ENCOUNTER 2025-04-25 11:16 | Outpatient (REF) | payer OTHER, SELFPAY ==
--- OUTSIDE RECORDS SUMMARY | 2025-04-22 23:59 | XMS_ITS | Continuity of Care Document ---
Author Organization [facility] Address [address] [place] [id number]- Care Team Providers Care Insurance Professional Name Role Phone Luan Elliott MD Primary Care Physician [place] [facility] [place]23[place]25 - 04/22/25 [facility] [address] [place] [phone]- Encounter Type: Triage Allergies, Adverse Reactions, Alerts No Known Medication Allergies Immunizations Given and Recorded Vaccine Date Status Refusal Reason Hepatitis A Adult Vaccine 02/28/25 Given influenza virus vaccine, inactivated 05/30/22 Jeremias rded [id number] 12y+ bivalent booster vax 05/30/22 Recorded Medications Apretude 600 mg/3 mL intramuscular suspension, extended release = 600 mg, Intramuscular, Once, To be given in ID office on 04/05/25, # 1 each, 0 Refills, Soft Stop, 03/24/25 11:38:00 AM EDT, [facility], Partial fill upon patient request if the prescription is for a schedule II opioid drug. Start Date: 03/24/25 Status: Ordered Medication Dispense Status: Completed Quantity: 1.0 Unit: each Total Allowed Fills: 1 Fills Dispensed: 0 Problem List Condition Confirmation Course Effective Dates Status Health St atus Informant Syphilis, secondary, skin/ Occular Syphilis Confirmed Active Social History Social History Type Response Smoking Status Never (less than 100 in lifetime) entered on: 02/08/25 Sex Male Sex Representation Male (finding) Patient Care team information Care Team Personnel Name: Luan Elliott MD Position: Reference Physician Member Role: PCP Address: [address] [place] [address] Drive [address] [place] [address]- [place] Telecom: Care Team Related Persons Name: BOONE WOLFE Insurance Providers Guarantor name: CHELSY PITTSBURG [employer] [facility] Information #: 1 Payer: [employer] Payer Identifier: NA Member Number: [id number] Group Number: [id number] Subscriber Identifier: NA Relationship to Subscriber: self Coverage Type: Commercial Indemnity Coverage Verification Date: NA Telecom: NA Address: NA
--- OUTSIDE RECORDS SUMMARY | 2025-04-22 23:59 | XMS_ITS | Continuity of Care Document ---
Author Organization [facility] Address [address] [place] [phone]- Care Team Providers Care Shipbuilding Draftsperson Name Role Phone Luan Elliott MD Primary Care Physician Encounter [facility] Date(s): 03/23/25 - 04/22/25 [facility] [address] [place] [phone]- Encounter Type: Triage Allergies, Adverse Reactions, Alerts No Known Medication Allergies Immunizations Given and Recorded Vaccine Date Status Refusal Reason Hepatitis A Adult Vaccine 02/28/25 Given influenza virus vaccine, inactivated 05/30/22 Jeremias rded [id number] 12y+ bivalent booster vax 05/30/22 Recorded Medications Apretude 600 mg/3 mL intramuscular suspension, extended release = 600 mg, Intramuscular, Once, To be given in ID office on 04/05/25, # 1 each, 0 Refills, Soft Stop, 03/24/25 11:38:00 AM EDT, [facility], Partial fill upon patient request [...] Position: Reference Physician Member Role: PCP Address: [address] [place] [address] Drive [address] [place] [address]- [place] Telecom: Care Team Related Persons Name: BOONE WOLFE Insurance Providers Guarantor name: CHELSY FRANKEWING [employer] [facility] Information #: 1 Payer: [employer] Payer Identifier: NA Member Number: [id number] Group Number: [id number] Subscriber Identifier: NA Relationship to Subscriber: self Coverage Type: Commercial Indemnity Coverage Verification Date: NA Telecom: NA Address: NA
[2025-04-25 11:41] LABS: Appearance Urine Clear; Glucose Urine UA Negative (Negative); PH 5.5 (5.0-9.0); Specific Gravity - Urine 1.015 (1.005-1.025)
== END 2025-04-25 11:17 | disposition home or self-care (01) ==
LOC: HO.LNP 11:16
PROVIDERS: Visit Provider Internal Medicine
DX: Z00.00 Encounter for general adult medical examination without abnormal findings (principal); R30.0 Dysuria; N28.9 Disorder of kidney and ureter, unspecified
CPT/HCPCS: 81003